=== PATIENT | female | born 1960 | race Caucasian/White ===

== ENCOUNTER 2017-06-28 14:13 | Emergency (ER) | payer BC ==
[2017-06-28 14:32] LABS: #Basophils 0.1 thou/uL (0.0-0.2); #Eosinphils 0.1 thou/uL (0.0-0.7); #Lymphocytes 2.9 thou/uL (1.20-3.40); #Monocytes 0.6 thou/uL (0.11-0.59); #Neutrophils 3.4 thou/uL (1.40-6.50); %Basophils 1.4 % (0.0-1.0); %Eosinophils 0.9 % (0.0-10.0); %Lymphocytes 41.2 % (21.0-51.0); %Monocytes 8.5 % (0.0-10.0); Hemoglobin 15.3 g/dL (12.0-16.0); Mean Corpuscular HGB CONC 34.1 g/dL (32.0-36.0); Mean Platelet Volume 6.8 fL (7.4-10.4); Platelet Count 315 thou/uL (130-400); RBC Distribution Width 10.9 % (11.5-14.5)
[2017-06-28] MEDS ORDERED: Ondansetron HCl/PF 4 MG/2 ML Vial ONE (14:34)
[2017-06-28 14:48] LABS: ALT (SGPT) 14 U/L (8-55); AST (SGOT) 17 U/L (5-34); Albumin 4.6 g/dL (3.5-5.0); Alkaline Phosphatase 115 U/L (40-150); Anion Gap 16 mmol/L (10-20); BUN (Urea Nitrogen) 14 mg/dL (9.8-20.1); Bilirubin, Total 0.5 mg/dL (0.2-1.2); CK (CPK) 21 U/L (29-168); CKMB 0.7 ng/mL (0-6.6); Calc. Creatinine Clearance 0 mL/min (70-130); Calcium 9.6 mg/dL (7.8-10.44); Carbon Dioxide 26 mmol/L (22-29); Chloride 100 mmol/L (98-107); Estimated GFR-MDRD 72; Globulin 2.8 g/dL (2.4-3.5); Glucose 121 mg/dL (70-105); Lipase 26 U/L (8-78); Potassium 3.5 mmol/L (3.5-5.1); Protein, Total 7.4 g/dL (6.0-8.3); Sodium 138 mmol/L (136-145); Troponin I 0.018 ng/mL (< 0.028)
--- NOTE | 2017-06-28 15:15 | RAD ---
PORTABLE CHEST: Date: 06/28/17 PROVIDED CLINICAL HISTORY: Nausea and vomiting. FINDINGS: Cardiac and mediastinal silhouette within normal limits. Lungs appear clear. No pleural fluid or pneu mothorax apparent. No evidence for pneumoperitoneum. IMPRESSION: No evidence for an acute cardiopulmonary process. POS: [facility]
[2017-06-28 17:16] LABS: Bilirubin Negative (Negative); Blood, Urine Trace (Negative); Clarity Clear (Clear); Glucose, Urine (Dipstick) Negative (Negative); Leukocyte Negative (Negative); Nitrite Negative (Negative); Protein, Urine (Dipstick) Negative (Neg-Trace); Specific Gravity, Urine 1.015 (1.005-1.030)
[2017-06-28 17:18] LABS: Bacteria/HPF 1+ HPF (None Seen); RBC/HPF 0-3 HPF (0-3); WBC/HPF None Seen HPF (0-3)
[2017-06-28 17:36] LABS: Troponin I 0.021 ng/mL (< 0.028)
== END 2017-06-28 17:51 | disposition home or self-care (01) ==
LOC: SCSER 14:13
DX: M79.602 Pain in left arm (principal); R11.2 Nausea with vomiting, unspecified; E03.9 Hypothyroidism, unspecified; I10 Essential (primary) hypertension; Z79.899 Other long term (current) drug therapy
CPT/HCPCS: 71045; 80053; 81003; 81015; 82550; 82553; 83690; 84484; 85025; 93005; 96361; 96374; J2405

== ENCOUNTER 2017-09-07 13:01 | Outpatient (CLI) | payer BC | END 2017-09-07 13:02 | disposition home or self-care (01) | LOC: BICMAMMO 13:01 | PROVIDERS: ATTEND Obstetrics & Gynecology | DX: Z12.31 Encounter for screening mammogram for malignant neoplasm of breast (principal); R92.1 Mammographic calcification found on diagnostic imaging of breast; Z80.3 Family history of malignant neoplasm of breast | CPT/HCPCS: 77063; 77067 ==

== ENCOUNTER 2017-09-30 13:39 | Emergency (ER) | payer BC ==
[2017-09-30 16:29] LABS: #Eosinphils 0.1 thou/uL (0.0-0.7); #Lymphocytes 1.6 thou/uL (1.20-3.40); #Monocytes 0.5 thou/uL (0.11-0.59); #Neutrophils 2.1 thou/uL (1.40-6.50); %Basophils 0.3 % (0.0-1.0); %Eosinophils 1.2 % (0.0-10.0); %Lymphocytes 37.1 % (21.0-51.0); %Monocytes 11.7 % (0.0-10.0); %Neutrophils 49.7 % (42.0-75.0); Hemoglobin 12.8 g/dL (12.0-16.0); Mean Corpuscular HGB CONC 34.4 g/dL (32.0-36.0); Mean Corpuscular Hemoglobin 30.9 pg (27.0-31.0); Mean Corpuscular Volume 89.7 fl (81.0-99.0); Mean Platelet Volume 6.4 fL (7.4-10.4); Platelet Count 223 thou/uL (130-400); RBC Distribution Width 11.9 % (11.5-14.5); Red Blood Cell (RBC) Count 4.16 mill/uL (4.20-5.40); White Blood Cell (WBC) Count 4.3 thou/uL (4.8-10.8)
[2017-09-30 16:54] LABS: CKMB 1.5 ng/mL (0-6.6); Troponin I Less than 0.010 ng/mL (< 0.028)
[2017-09-30 16:55] LABS: ALT (SGPT) 12 U/L (8-55); AST (SGOT) 20 U/L (5-34); Albumin 4.3 g/dL (3.5-5.0); Alkaline Phosphatase 112 U/L (40-150); Anion Gap 12 mmol/L (10-20); BUN (Urea Nitrogen) 15 mg/dL (9.8-20.1); Bilirubin, Total 0.3 mg/dL (0.2-1.2); Calc. Creatinine Clearance 0 mL/min (70-130); Carbon Dioxide 25 mmol/L (22-29); Chloride 107 mmol/L (98-107); Estimated GFR-MDRD 54; Globulin 2.7 g/dL (2.4-3.5); Glucose 76 mg/dL (70-105); Potassium 4.2 mmol/L (3.5-5.1); Sodium 140 mmol/L (136-145)
== END 2017-09-30 17:22 | disposition home or self-care (01) ==
LOC: ERS 13:39
DX: I10 Essential (primary) hypertension (principal); E03.9 Hypothyroidism, unspecified; K21.9 Gastro-esophageal reflux disease without esophagitis; Z79.899 Other long term (current) drug therapy; Z79.891 Long term (current) use of opiate analgesic
CPT/HCPCS: 36415; 80053; 82553; 84484; 85025; 93005

== ENCOUNTER 2018-01-02 11:33 | Inpatient (IN) | payer BC ==
[2018-01-02] MEDS ORDERED: Ketorolac Tromethamine 30 MG/ML VIAL ONE ×2 (12:17→15:24)
[2018-01-02 12:21] LABS: Bilirubin Negative (Negative); Blood, Urine Negative (Negative); Clarity Clear (Clear); Glucose, Urine (Dipstick) Negative (Negative); Leukocyte Trace (Negative); Nitrite Negative (Negative); Protein, Urine (Dipstick) Negative (Neg-Trace); Specific Gravity, Urine 1.015 (1.005-1.030); pH, Urine 7.5 (5.0-9.0)
[2018-01-02 12:23] LABS: #Basophils 0.1 thou/uL (0.0-0.2); #Eosinphils 0.1 thou/uL (0.0-0.7); #Lymphocytes 1.8 thou/uL (1.20-3.40); #Monocytes 0.6 thou/uL (0.11-0.59); #Neutrophils 4.8 thou/uL (1.40-6.50); %Basophils 1.3 % (0.0-1.0); %Lymphocytes 24.6 % (21.0-51.0); %Neutrophils 65.1 % (42.0-75.0); Hemoglobin 14.1 g/dL (12.0-16.0); Mean Corpuscular HGB CONC 34.5 g/dL (32.0-36.0); Mean Corpuscular Hemoglobin 30.2 pg (27.0-31.0); Mean Corpuscular Volume 87.4 fL (78.0-98.0); Mean Platelet Volume 6.7 fL (7.4-10.4); Platelet Count 306 thou/uL (130-400); RBC Distribution Width 11.7 % (11.5-14.5); Red Blood Cell (RBC) Count 4.68 mill/uL (4.20-5.40); White Blood Cell (WBC) Count 7.4 thou/uL (4.8-10.8)
[2018-01-02 12:25] LABS: Bacteria/HPF Rare-Few HPF (None Seen); RBC/HPF 0-3 HPF (0-3); Squamous Epithelial 0-3 HPF (0-3); WBC/HPF 0-3 HPF (0-3)
[2018-01-02 12:38] LABS: ALT (SGPT) 12 U/L (8-55); AST (SGOT) 17 U/L (5-34); Albumin 4.4 g/dL (3.5-5.0); Alkaline Phosphatase 120 U/L (40-150); Anion Gap 14 mmol/L (10-20); BUN (Urea Nitrogen) 15 mg/dL (9.8-20.1); Bilirubin, Total 0.7 mg/dL (0.2-1.2); Calc. Creatinine Clearance 0 mL/min (70-130); Calcium 9.7 mg/dL (7.8-10.44); Carbon Dioxide 29 mmol/L (22-29); Chloride 103 mmol/L (98-107); Estimated GFR-MDRD 69; Globulin 2.7 g/dL (2.4-3.5); Glucose 90 mg/dL (70-105); Lipase 22 U/L (8-78); Potassium 3.7 mmol/L (3.5-5.1); Protein, Total 7.1 g/dL (6.0-8.3); Sodium 142 mmol/L (136-145)
[2018-01-02] MEDS ORDERED: metroNIDAZOLE 500 MG/100 ML BAG ONE (12:54)
--- NOTE | 2018-01-02 13:24 | CT ---
CT ABDOMEN AND PELVIS: Date: 01/02/18 PROVIDED CLINICAL HISTORY: Abdominal pain. FINDINGS: The visualized lung bases are free of significant opacity. The solid abdominal organs are suboptimally evaluated in the absence of IV contrast material, but dem onstrate an unremarkable unenhanced CT appearance. Changes of prior cholecystectomy are seen. Lower lumbar spine postoperative changes are noted. There is no bowel dilatation, inflammatory fat stranding, free fluid, or lymph node enlargement apparent. A pparent mural thickening involving the sigmoid colon and distal descending colon could reflect coliti s versus nondistention. The osseous structures demonstrate no concerning lytic or blastic lesions. Occasional vascular calcif ications are seen. IMPRESSION: 1. Apparent mural thickening involving sigmoid and distal descending colon may reflect nondistention versus colitis. 2. Chronic findings as above. POS: [facility]
[2018-01-02] MEDS ORDERED: Ondansetron HCl/PF 4 MG/2 ML Vial IVP PRN (16:14)
[2018-01-02] MEDS ORDERED: Ondansetron ODT 4 MG TAB SL PRN (16:14)
[2018-01-02] MEDS ORDERED: Dextrose 5 %-0.45 % NaCl 1,000 ML IV SCH (16:15)
[2018-01-02 16:17] VITALS: BMI 23.5
[2018-01-02] MEDS ORDERED: Acetaminophen 325 MG TAB PO PRN (16:18)
[2018-01-02] MEDS ORDERED: cloNIDine 0.1 MG TAB PO PRN (16:18)
[2018-01-02] MEDS ORDERED: Bisacodyl 5 MG TAB PO PRN ×2 (16:18)
[2018-01-02] MEDS ORDERED: Diabetic Tussin 200 MG/10 ML UDCUP PO PRN (16:18)
[2018-01-02] MEDS ORDERED: Lorazepam 1 MG TAB PO PRN (16:18)
[2018-01-02] MEDS ORDERED: Mag-Al 1200 mg/1200 mg/30 ML UDCUP PO PRN (16:18)
[2018-01-02] MEDS ORDERED: Benzonatate 100 MG CAP PO PRN (16:18)
[2018-01-02] MEDS ORDERED: Nitroglycerin 0.4 MG TAB (25 Tab Bottle) SL PRN (16:18)
[2018-01-02] MEDS ORDERED: Calcium Carbonate 500 MG ChewTAB PO PRN (16:18)
[2018-01-02] MEDS ORDERED: Senokot 8.6 MG TAB PO PRN ×2 (16:18)
[2018-01-02] MEDS ORDERED: traMADol HCl 50 MG TAB PO PRN (16:18)
[2018-01-02] MEDS ORDERED: Loratadine 10 MG TAB PO PRN (16:18)
[2018-01-02] MEDS ORDERED: hydrALAZINE 20 MG/ML VIAL SLOW IVP PRN (16:18)
[2018-01-02] MEDS ORDERED: HYDROcodone/Acetaminophen 5/325 mg Tablet PO PRN (16:18)
[2018-01-02 17:03] LABS: Anion Gap 12 mmol/L (10-20); BUN (Urea Nitrogen) 13 mg/dL (9.8-20.1); Calc. Creatinine Clearance 91 mL/min (70-130); Calcium 8.8 mg/dL (7.8-10.44); Carbon Dioxide 25 mmol/L (22-29); Chloride 107 mmol/L (98-107); Estimated GFR-MDRD 78; Glucose 82 mg/dL (70-105); Potassium 3.7 mmol/L (3.5-5.1); Sodium 140 mmol/L (136-145)
[2018-01-02] MEDS: Sodium Chloride 0.9% 1,000 ML IV SCH (17:53)
[2018-01-02] MEDS ORDERED: Ketorolac Tromethamine 30 MG/ML VIAL IVP PRN (17:54)
--- NOTE | 2018-01-02 18:23 | HP ---
DATE OF ADMISSION: 01/02/2018 PRIMARY CARE PHYSICIAN: Dr. Gregorio Leong. PRIMARY SERVICE WRITER: Dr. Rina Marshall. CHIEF COMPLAINT: Abdominal pain, vomiting. HISTORY OF PRESENT ILLNESS: Ms. Callaway is a very pleasant 57-year-old female with extensive history of gastrointestinal issues who is under the care of Dr. Rina Granda, presented to the emergency room in [place] with the above-mentioned complaints. History is mainly obtained by the patient he rself and electronic medical records have been reviewed. Ms. Callaway reports that she has had 7 attacks of diverticulitis in the last 3 years which consist abdom inal pain, nausea, and vomiting. She has had three colonoscopies so far with regards to this. She a lso follows up with a colorectal specialist for history of some rectal fistula that was repaired in [facility]. Her last episode was in June of this year. She reports that she started to have abdominal pain 2 days ago which progressively got worse. It was associated with nausea and eventually she started to have significant vomiting. She called her GI d octor yesterday and was started on ciprofloxacin and metronidazole, but was unable to take any doses because of vomiting. She presented to the ER with these symptoms and underwent a CT scan of the abdo men and pelvis without contrast. It did show possibility of mild colitis in the sigmoid and distal d escending colon. This was done without contrast. She was given IV ciprofloxacin and metronidazole a nd is now being transferred to our facility for admission for further care. The patient that she has a history of significant gynecological issues in the past and had a hysterec aldair at the age of 28 for possible endometriosis. PAST MEDICAL HISTORY: 1. Hypothyroidism. 2. Lupus. The patient currently is on immunosuppressive medications and follows up with lupus roman king in [place] and reports that it is rather controlled. 3. History of recurrent diverticulitis. 4. Gastroesophageal reflux disease. 5. Chronic back pain under the care of Dr. Decker. 6. Hypertension. PAST SURGICAL HISTORY: 1. Cholecystectomy. 2. Back surgery x2. 3. Hemorrhoidectomy. 4. Hysterectomy at the age of 28 and oophorectomy later. PSYCHIATRIC HISTORY: No anxiety, no depression reviewed with the patient. SOCIAL HISTORY: She is and lives with her . She quit smoking about 20 years ago. Jimenez s no history of alcohol or drug use. FAMILY HISTORY: Significant for diabetes in her father as well as hypertension in multiple other [facility] members. No history of premature coronary artery disease, stroke or cancer. Her sister has also been diagnosed with lupus. ALLERGIES: LATEX, SULFONAMIDE, and BACTRIM. CURRENT MEDICATIONS: Lansoprazole 30 mg daily, tizanidine 4 mg every 8 hours p.r.n., amlodipine 5 mg daily, clonidine 0.1 mg as needed for high blood pressure, hydroxychloroquine 200 mg b.i.d., folic a sherita 1 mg daily, Medrol Dosepak as needed, methotrexate 6 tablets once a week of 2.5 mg, Nucynta 50 mg every 6 hours. REVIEW OF SYSTEMS: A 12-point review of systems is done. It is negative except for those mentioned in the history and physical. LABORATORY DATA: CBC is unremarkable. Serum chemistries unremarkable. Lipase normal at 22. Liver enzymes within normal limit. Urinalysis shows trace leukocyte esterase without WBCs or bacteria. CT scan of the abdomen and pelvis shows some mural thickening involving the sigmoid and distal descendi ng colon reflecting nondistention versus colitis. PHYSICAL EXAMINATION: VITAL SIGNS: Upon presentation to the emergency room, blood pressure 158/82, pulse of 87, respiratio ns 20, saturating 99% on room air, temperature 98.6. GENERAL: No acute distress, awake, alert, oriented x3. She does appear somewhat uncomfortable. HEENT: Mucous membrane is moist and pink. No oropharyngeal exudate or erythema. Head is normocepha lic, atraumatic. Pupils equal, reactive to light and accommodation. Extraocular movement intact. NECK: Supple without any lymphadenopathy, JVD or bruit. CHEST: Clear to auscultation without any wheezing, rales or rhonchi. Rate and rhythm is regular wit hout any murmur, rubs or gallops. ABDOMEN: Soft, somewhat distended. No rebound, guarding or rigidity. Mild tender to palpation diff usely, mostly in the subumbilical region. EXTREMITIES: No cyanosis, clubbing, or edema. NEUROLOGIC: Nonfocal. SKIN: Free of any rashes or bruises. PSYCHIATRIC: Normal affect. IMPRESSION AND PLAN: 1. Abdominal pain. There is a question of colitis versus recurrent diverticulitis. At this time, s he will be treated with empiric IV antibiotic directed towards gastrointestinal issues. She has sign ificant history of gastrointestinal episodes of similar symptoms. We will request consultation with GI during this hospitalization as this episode seems to be more severe than previous. She has been t old in the past that she might need resection of the colon if she continues to have recurrent episode s of diverticulitis. At this time, we will keep her n.p.o. and start her on IV fluids for hydration and use IV pain medications for relief. Hold oral medications and use instead. 2. History of lupus. We will restart her home medications in the morning when she is able to take o ral medications. 3. Hypertension. Add p.r.n. antihypertensives by IV route and restart home medications in the morni ng if she is able to take oral. 4. Hypothyroidism. We will restart her levothyroxine tomorrow morning once she is able to take oral medications. 5. Deep venous thrombosis and gastrointestinal prophylaxis. 6. Code status: FULL CODE. Discussed with the patient. 7. Add p.r.n. medication order. DISPOSITION: Ms. Callaway is currently being admitted to the hospital with recurrent diverticulitis vers us colitis causing abdominal pain and inability to take oral antibiotic in the outpatient setting. E stimated length of stay at this time is at least 2-3 midnights. Further management will depend upon her clinical course.
[2018-01-02] MEDS: Hydroxychloroquine Sulfate 200 MG TAB PO SCH (21:00)
[2018-01-02] MEDS: Famotidine/PF 20 mg/2ml Vial SLOW IVP SCH (21:01)
[2018-01-02] MEDS: metroNIDAZOLE 500 MG in Premix Bag 1 BAG IVPB SCH (21:10)
[2018-01-02] MEDS ORDERED: metroNIDAZOLE 500 MG in Premix Bag 1 BAG IVPB SCH (22:00)
[2018-01-03] MEDS: Sodium Chloride 0.9% 1,000 ML IV SCH ×2 (04:16→17:34)
[2018-01-03 04:17] LABS: #Basophils 0.1 thou/uL (0.0-0.2); #Eosinphils 0.1 thou/uL (0.0-0.7); #Lymphocytes 2.1 thou/uL (1.20-3.40); #Monocytes 0.5 thou/uL (0.11-0.59); #Neutrophils 1.9 thou/uL (1.40-6.50); %Basophils 1.1 % (0.0-1.0); %Eosinophils 2.2 % (0.0-10.0); %Lymphocytes 44.6 % (21.0-51.0); %Monocytes 11.1 % (0.0-10.0); %Neutrophils 40.9 % (42.0-75.0); Hemoglobin 12.7 g/dL (12.0-16.0); Mean Corpuscular Hemoglobin 31.3 pg (27.0-31.0); Mean Corpuscular Volume 92.1 fL (78.0-98.0); Mean Platelet Volume 6.7 fL (7.4-10.4); Platelet Count 252 thou/uL (130-400); RBC Distribution Width 12.6 % (11.5-14.5); Red Blood Cell (RBC) Count 4.05 mill/uL (4.20-5.40); White Blood Cell (WBC) Count 4.7 thou/uL (4.8-10.8)
[2018-01-03] MEDS: Levothyroxine 150 MCG TAB PO SCH (05:47)
[2018-01-03] MEDS: metroNIDAZOLE 500 MG in Premix Bag 1 BAG IVPB SCH ×3 (05:47→21:09)
[2018-01-03] MEDS ORDERED: Methotrexate Sodium 2.5 MG TAB PO SCH (09:00)
[2018-01-03] MEDS: Ondansetron HCl/PF 4 MG/2 ML Vial IVP PRN ×2 (09:35→17:30)
[2018-01-03] MEDS: Amlodipine 5 MG TAB PO SCH (09:36)
[2018-01-03] MEDS: Famotidine/PF 20 mg/2ml Vial SLOW IVP SCH ×2 (09:36→21:08)
[2018-01-03] MEDS: Folic Acid 1 MG TAB PO SCH (09:36)
[2018-01-03] MEDS: Hydroxychloroquine Sulfate 200 MG TAB PO SCH ×2 (09:36→21:08)
[2018-01-03] MEDS: Enoxaparin Sodium 40 MG/0.4 ML SYRINGE SC SCH (09:37)
--- NOTE | 2018-01-03 12:29 | PDOC.PN ---
- Subjective Encounter Start Date: 01/03/18 Encounter Start Time: 12:27 Subjective: feels nauseated w on and off Abd pain , -: no stools since admission as has not eaten -: no fever - Objective MAR Reviewed: Yes Vital Signs & Weight: Vital Signs (12 hours) Temp Pulse Resp BP BP Pulse Ox 01/03/18 11:43 97.8 F 76 16 124/77 97 01/03/18 09:36 73 122/60 01/03/18 08:00 97.9 F 73 16 122/60 98 01/03/18 04:43 97.7 F 76 16 122/73 99 01/03/18 00:37 97.8 F 76 16 127/65 99 Weight Weight 154 lb 9 oz I&O: 01/02/18 01/03/18 01/04/18 06:59 06:59 06:59 Intake Total 1440 Balance 1440 Result Diagrams: 01/03/18 03:38 01/02/18 16:30 Phys Exam - Physical Examination Constitutional: NAD HEENT: PERRLA, moist MMs, sclera anicteric, oral pharynx no lesions Neck: no nodes, no JVD, supple, full ROM Respiratory: no wheezing, no rales, no rhonchi, clear to auscultation bilateral Cardiovascular: RRR, no significant murmur, no rub Gastrointestinal: soft, no distention, positive bowel sounds mild TTP lower abdomen Musculoskeletal: no edema, pulses present Neurological: non-focal, normal sensation, moves all 4 limbs Psychiatric: normal affect, A&O x 3 Skin: no rash Dx/Plan (1) Colitis Code(s): K52.9 - NONINFECTIVE GASTROENTERITIS AND COLITIS, UNSPECIFIED Status : Acute Comment: on Empiric Antibiotics (2) Abdominal pain Code(s): R10.9 - UNSPECIFIED ABDOMINAL PAIN Status: Acute Qualifiers: Abdominal location: lower abdomen, unspecified Qualified Code(s): R10.30 - Lower abdominal pain, unspecified (3) Lupus Code(s): L93.0 - DISCOID LUPUS ERYTHEMATOSUS Status: Chronic Qualifiers: Lupus erythematosus form: unspecified Qualified Code(s): L93.0 - Discoid lupus erythematosus (4) H/O diverticulitis of colon Code(s): Z87.19 - PERSONAL HISTORY OF OTHER DISEASES OF THE DIGESTIVE SYSTEM Status: Chronic (5) H/O endometritis Code(s): Z87.42 - PERSONAL HISTORY OF OTH DISEASES OF THE FEMALE GENITAL TRACT Status: Chronic - Plan plan discussed w/ family, continue antibiotics, out of bed/ambulate, DVT proph w /SCDs Will give trial of CLD after being discussed w Pt. -: cont empiric ABx. expect clinical improvement in next 24 hours -: cont IVF for now.HD stable -: GI recs requested -: home meds as below if able to take w/o vomiting * . Review of Systems - Review of Systems Constitutional: weakness, malaise. negative: fever, chills, sweats, other ENT: negative: Ear Pain, Ear Discharge, Nose Pain, Nose Discharge, Nose Congestion, Mouth Pain, Mouth Swelling, Throat Pain, Throat Swelling, Other Respiratory: negative: Cough, Dry, Shortness of Breath, Hemoptysis, SOB with Excertion, Pleuritic Pain, Sputum, Wheezing Cardiovascular: negative: chest pain, palpitations, orthopnea, paroxysmal nocturnal dyspnea, edema, light headedness, other Gastrointestinal: Nausea, Abdominal Pain. negative: Vomiting, Diarrhea, Constipation, Melena, Hematochezia, Other Genitourinary: negative: Dysuria, Frequency, Incontinence, Hematuria, Retention , Other Musculoskeletal: negative: Neck Pain, Shoulder Pain, Arm Pain, Back Pain, Hand Pain, Leg Pain, Foot Pain, Other Skin: negative: Rash, Lesions, Demian, Bruising, Other Neurological: negative: Weakness, Numbness, Incoordination, Change in Speech, Confusion, Seizures, Other - Medications/Allergies Allergies/Adverse Reactions: Allergies Allergy/AdvReac Type Severity Reaction Status Date / Time Sulfa (Sulfonamide Allergy Verified 01/02/18 16:20 Antibiotics) sulfamethoxazole Allergy Verified 04/16/13 12:32 [From Bactrim] trimethoprim [From Bactrim] Allergy Verified 04/16/13 12:32 Medications: Current Medications Acetaminophen (Tylenol) 650 mg PO Q4H PRN PRN Reason: Headache/Fever or Pain Hydrocodone Bitart/Acetaminophen (Steedman 5/325) 1 tab PO Q4H PRN PRN Reason: Moderate Pain (4-6) Al Hydroxide/Mg Hydroxide (Maalox) 30 ml PO Q6H PRN PRN Reason: Heartburn or Indigestion Amlodipine Besylate (Norvasc) 5 mg PO DAILY [facility] Last Admin: 01/03/18 09:36 Dose: 5 mg Benzonatate (Tessalon) 100 mg PO Q4H PRN PRN Reason: Cough Bisacodyl (Dulcolax) 10 mg PO DAILYPRN PRN PRN Reason: Constipation Bisacodyl (Dulcolax) 10 mg PO DAILYPRN PRN PRN Reason: Constipation Calcium Carbonate (Tums) 1,000 mg PO Q4H PRN PRN Reason: Heartburn or Indigestion Clonidine (Catapres) 0.1 mg PO Q4H PRN PRN Reason: Systolic BP > 160 Enoxaparin Sodium (Lovenox) 40 mg SC 09 [facility] Last Admin: 01/03/18 09:37 Dose: 40 mg Famotidine (Pepcid) 20 mg SLOW IVP Q12HR [facility] Last Admin: 01/03/18 09:36 Dose: 20 mg Folic Acid (Folvite) 1 mg PO DAILY [facility] Last Admin: 01/03/18 09:36 Dose: Not Given Guaifenesin (Robitussin Sf) 200 mg PO Q4H PRN PRN Reason: Cough Hydralazine HCl (Apresoline) 10 mg SLOW IVP Q4H PRN PRN Reason: Systolic BP > 170 Hydroxychloroquine Sulfate (Plaquenil) 400 mg PO BID [facility] Last Admin: 01/03/18 09:36 Dose: 400 mg Sodium Chloride (Normal Saline 0.9%) 1,000 mls @ 100 mls/hr IV .Q10H [facility] Last Admin: 01/03/18 04:16 Dose: 1,000 mls Levofloxacin 500 mg/ Device 100 mls @ 100 mls/hr IVPB Q24HR [facility] Last Admin: 01/03/18 09:35 Dose: 100 mls Metronidazole 500 mg/ Device 100 mls @ 100 mls/hr IVPB Q8HR [facility] Last Admin: 01/03/18 05:47 Dose: 100 mls Ketorolac Tromethamine (Toradol) 15 mg IVP Q12H PRN PRN Reason: Severe Pain (7-10) Stop: 01/07/18 17:55 Levothyroxine Sodium (Synthroid) 150 mcg PO 0600 [facility] Last Admin: 01/03/18 05:47 Dose: 150 mcg Loratadine (Claritin) 10 mg PO DAILYPRN PRN PRN Reason: Sinus Symptoms Lorazepam (Ativan) 1 mg PO Q4H PRN PRN Reason: Anxiety/Agitation Methotrexate Sodium (Methotrexate Sodium) 15 mg PO Garner@0900 JUAN Morphine Sulfate (Morphine) 2 mg SLOW IVP Q4H PRN PRN Reason: Moderate Pain (4-6) Last Admin: 01/03/18 09:35 Dose: 2 mg Nitroglycerin (Nitrostat) 0.4 mg SL Q5MIN PRN PRN Reason: Chest Pain Ondansetron HCl (Zofran) 4 mg IVP Q6H PRN PRN Reason: Nausea/Vomiting Last Admin: 01/03/18 09:35 Dose: 4 mg Senna (Senokot) 2 tab PO HSPRN PRN PRN Reason: Constipation Tramadol HCl (Ultram) 50 mg PO Q4H PRN PRN Reason: Moderate Pain (4-6)
--- NOTE | 2018-01-03 16:19 | CON ---
DATE OF CONSULTATION: 01/03/2018 GI INPATIENT CONSULTATION NOTE REASON FOR CONSULTATION: Abdominal pain and abnormal CT. HISTORY OF PRESENT ILLNESS: Cee Callaway is a 57-year-old woman, a patient of my GI colleague, Dr. Melina Granda. She was admitted to the hospital yesterday with recurrent abdominal pain. She has a hist ory of recurrent diverticulitis. She reports she has had 7 attacks of diverticulitis in the past 3 y ears. Her last attack was in April of this year and she was actually hospitalized in [place] for 5 days. She says each episode is basically exactly the same. She will have generalized abdominal krista n which will start to localize to the left lower quadrant and become severe over the course of 1-2 da ys. There will be some associated nausea and sometimes nonbloody emesis. Bowel habits will change a nd she will get relatively obstipated though usually continue to pass gas. There is no rectal bleedi ng with these episodes. She has not had any fever at least on this episode. It looks like her last colonoscopy was in 03/2015. Dr. Granda actually performed EGD and colonoscopy at that time. She was found to have mild gastric erythema and internal and external hemorrhoids and sigmoid diverticulosis, but notably there was no evidence of any chronic colitis. In fact, she had biopsies taken from the stomach, duodenum, right and left colon and all those biopsies were normal at that time. The patient does not think she has had any colonoscopy since then, though she may have had one in [place] with a colorectal surgeon, she is not sure. 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 Upo n admission, Ms. Callaway had another CT of the abdomen and pelvis yesterday and this did show mural thic kening in the sigmoid colon and distal descending colon, though really not a lot of inflammatory stra nding and this was read as nondistention versus colitis. Prior CT scans on different presentations i n the past few years have demonstrated more obvious features of a classic sigmoid diverticulitis. Th e patient is currently getting IV Levaquin and Flagyl as well as morphine for pain control. The morp gaby is helping. She advanced to clear liquid diet just earlier today, but is not really feeling janette y hungry yet. She is passing gas, but has not had a bowel movement for the past couple of days. She is afebrile. REVIEW OF SYSTEMS: Full review of systems including constitutional, head, eyes, ears, nose, throat, GI, , cardiovascular, respiratory, musculoskeletal, and neurologic systems is negative except as no [place] in the HPI. PAST MEDICAL HISTORY: Lupus, hypothyroidism, history of recurrent sigmoid diverticulitis, gastroesop hageal reflux disease, chronic back pain, hypertension. PAST SURGICAL HISTORY: Cholecystectomy, back surgery x2, hemorrhoidectomy, hysterectomy age 28 and o ophorectomy later. SOCIAL HISTORY: She is and lives with her . She quit smoking about 20 years ago. No alcohol or drug use. FAMILY HISTORY: Her sister also has lupus, diabetes, and hypertension in multiple family members. ALLERGIES: LATEX, SULFONAMIDE, BACTRIM. OUTPATIENT MEDICATIONS: Lansoprazole 30 mg daily, tizanidine p.r.n., amlodipine, clonidine p.r.n., h ydroxychloroquine, folic acid, Medrol Dosepak as needed, methotrexate 6 tablets once a week of 2.5 mg , Nucynta 50 mg every 6 hours. The patient had also been started on oral ciprofloxacin and Flagyl within the past couple days prior to admission, but was unable to tolerate oral medications. PHYSICAL EXAMINATION: VITAL SIGNS: Temperature 97.8, pulse 76, blood pressure 124/77, 97% oxygen saturation on room air. GENERAL: A 57-year-old woman lying in bed comfortably, in no distress. SKIN: No jaundice, no rash visible or palpable. EYES: No scleral icterus. Extraocular movements intact. ENT: Mucous membranes moist, no oral lesions. LYMPH: No submandibular or supraclavicular lymphadenopathy. THYROID: Nontender to palpation. MENTAL: She is alert and fully oriented. She is pleasant and conversational. She can give a detail ed coherent history. HEART: Regular rate and rhythm. LUNGS: Clear to auscultation bilaterally. ABDOMEN: Bowel sounds are present. The abdomen is soft, but tender to palpation diffusely, particul agapito in the lower abdomen and left lower quadrant. No guarding or rebound tenderness. EXTREMITIES: No peripheral edema. VESSELS: Radial pulses 2+ bilaterally. NEUROLOGICAL: Cranial nerves II-XII intact bilaterally. No focal deficits. LABORATORY STUDIES: WBC 4.7, hemoglobin 12.7, platelets 252. Sodium 140, potassium 3.7, BUN 13, cre atinine 0.77. LFTs all normal. Lipase normal at 22. Urinalysis negative. IMAGING STUDIES: CT of the abdomen and pelvis from yesterday demonstrated some mural thickening of t he sigmoid and distal descending colon representing nondistention versus colitis. Note that this was a noncontrast scan. ASSESSMENT AND PLAN: 1. Sigmoid diverticulitis, recurrent. 2. Left lower quadrant abdominal pain, secondary to recurrent sigmoid diverticulitis. The patient's presentation is consistent with recurrent sigmoid diverticulitis. Findings have been m ore clear on prior CT scans, but symptoms and presentation are all the same. I doubt the onset of an y chronic inflammatory bowel disease, particularly with last colonoscopy in 03/2015 showing normal co lonic mucosa. Normal colon biopsies at that time. In the short term, I would avoid any endoscopic e xamination due to the higher risk of complications. I would continue with supportive care and IV ant ibiotics as you are doing. Hopefully, she will be able to advance her diet and pain requirements sandra l decrease over the next couple of days, as before. She can follow up with Dr. Granda in the outpatie nt setting to discuss whether repeat colonoscopy would be advisable in the coming weeks after she has recovered from this acute episode. In the longer term, with a 7 attacks of diverticulitis in the past 3 years, at this point it would be reasonable to consider surgical consultation for consideration of sigmoid resection. I do not think this is necessarily have to be done on an inpatient basis here. In fact, she has a colorectal surge on in [place] whom she sees anyway, and could discuss this with her. Thank you for the consultation. Please call any time with questions or concerns.
[2018-01-04] MEDS: Ondansetron HCl/PF 4 MG/2 ML Vial IVP PRN ×2 (04:50→11:02)
[2018-01-04] MEDS: Levothyroxine 150 MCG TAB PO SCH (04:52)
[2018-01-04] MEDS: metroNIDAZOLE 500 MG in Premix Bag 1 BAG IVPB SCH ×3 (04:55→21:02)
[2018-01-04] MEDS: Sodium Chloride 0.9% 1,000 ML IV SCH (04:57)
[2018-01-04] MEDS: Hydroxychloroquine Sulfate 200 MG TAB PO SCH ×2 (08:50→21:03)
[2018-01-04] MEDS: Folic Acid 1 MG TAB PO SCH (08:51)
[2018-01-04] MEDS: Amlodipine 5 MG TAB PO SCH (08:51)
[2018-01-04] MEDS: Famotidine/PF 20 mg/2ml Vial SLOW IVP SCH ×2 (08:52→21:02)
[2018-01-04] MEDS: Enoxaparin Sodium 40 MG/0.4 ML SYRINGE SC SCH (08:52)
[2018-01-04] MEDS ORDERED: Meperidine HCl/PF 25 MG/ML VIAL SLOW IVP PRN (11:16)
[2018-01-04] MEDS ORDERED: Promethazine HCl 25 MG/ML VIAL IM/IV PRN (11:16)
--- NOTE | 2018-01-04 12:22 | PRG ---
DATE OF SERVICE: 01/04/2018 SUBJECTIVE: Mrs. Callaway feels like her pain has overall improved, it is more constant and dull, fairly generalized, but more localizing to the lower abdomen still. She has been afebrile and hemodynamica lly stable. Her primary complaint this morning is nausea. She has not had any vomiting. OBJECTIVE: VITAL SIGNS: Temperature 97.7, pulse 66, blood pressure 115/65, 99% oxygen saturation on room air. GENERAL: No acute distress. HEART: Regular rate and rhythm. LUNGS: Clear to auscultation bilaterally. ABDOMEN: Bowel sounds are hypoactive. The abdomen is soft. She is tender to palpation diffusely, m ore in the lower abdomen, but no guarding, rebound tenderness. EXTREMITIES: No peripheral edema. ASSESSMENT AND PLAN: 1. Sigmoid diverticulitis, recurrence. 2. Left lower quadrant abdominal pain. 3. Nausea, no evidence of complicated disease on admission CT scan. She has remained afebrile. We would continue supportive care with antiemetics and analgesics for now. We would just have her on a clear liquid diet as tolerated today, hopefully will be able to advance tomorrow.
--- NOTE | 2018-01-04 13:50 | PDOC.PN ---
- Subjective Encounter Start Date: 01/04/18 Encounter Start Time: 13:48 Subjective: c/o significant nause and abd pain after eating few bites - Objective MAR Reviewed: Yes Vital Signs & Weight: Vital Signs (12 hours) Temp Pulse Resp BP BP Pulse Ox 01/04/18 08:51 66 115/65 01/04/18 08:00 97.7 F 66 16 115/65 99 Weight Weight 154 lb 9 oz I&O: 01/03/18 01/04/18 01/05/18 06:59 06:59 06:59 Intake Total 1440 2039 180 Balance 1440 2039 180 Result Diagrams: 01/03/18 03:38 01/02/18 16:30 Phys Exam - Physical Examination Constitutional: NAD uncomfortable HEENT: PERRLA, moist MMs, sclera anicteric, oral pharynx no lesions Neck: no nodes, no JVD, supple, full ROM Respiratory: no wheezing, no rales, no rhonchi, clear to auscultation bilateral Cardiovascular: RRR, no significant murmur, no rub Gastrointestinal: soft, non-tender, no distention, positive bowel sounds Musculoskeletal: no edema, pulses present Neurological: non-focal, normal sensation, moves all 4 limbs Psychiatric: normal affect, A&O x 3 Skin: no rash Dx/Plan (1) Sigmoid diverticulitis Code(s): K57.32 - DVTRCLI OF LG INT W/O PERFORATION OR ABSCESS W/O BLEEDING Status: Acute (2) Colitis Code(s): K52.9 - NONINFECTIVE GASTROENTERITIS AND COLITIS, UNSPECIFIED Status : Acute Comment: on Empiric Antibiotics (3) Abdominal pain Code(s): R10.9 - UNSPECIFIED ABDOMINAL PAIN Status: Acute Qualifiers: Abdominal location: lower abdomen, unspecified Qualified Code(s): R10.30 - Lower abdominal pain, unspecified (4) Lupus Code(s): L93.0 - DISCOID LUPUS ERYTHEMATOSUS Status: Chronic Qualifiers: Lupus erythematosus form: unspecified Qualified Code(s): L93.0 - Discoid lupus erythematosus (5) H/O diverticulitis of colon Code(s): Z87.19 - PERSONAL HISTORY OF OTHER DISEASES OF THE DIGESTIVE SYSTEM Status: Chronic (6) H/O endometritis Code(s): Z87.42 - PERSONAL HISTORY OF OTH DISEASES OF THE FEMALE GENITAL TRACT Status: Chronic - Plan plan discussed w/ family, continue antibiotics, out of bed/ambulate, DVT proph w /SCDs increase pain control and anti emetics -: CLD as tolerated -: GI recs appreciated. -: ABx .HD stable * . Review of Systems - Review of Systems Constitutional: weakness, malaise. negative: fever, chills, sweats, other Respiratory: negative: Cough, Dry, Shortness of Breath, Hemoptysis, SOB with Excertion, Pleuritic Pain, Sputum, Wheezing Cardiovascular: negative: chest pain, palpitations, orthopnea, paroxysmal nocturnal dyspnea, edema, light headedness, other Gastrointestinal: negative: Nausea, Vomiting, Abdominal Pain, Diarrhea, Constipation, Melena, Hematochezia, Other Genitourinary: negative: Dysuria, Frequency, Incontinence, Hematuria, Retention , Other Musculoskeletal: negative: Neck Pain, Shoulder Pain, Arm Pain, Back Pain, Hand Pain, Leg Pain, Foot Pain, Other Neurological: negative: Weakness, Numbness, Incoordination, Change in Speech, Confusion, Seizures, Other - Medications/Allergies Allergies/Adverse Reactions: Allergies Allergy/AdvReac Type Severity Reaction Status Date / Time Sulfa (Sulfonamide Allergy Verified 01/02/18 16:20 Antibiotics) sulfamethoxazole Allergy Verified 04/16/13 12:32 [From Bactrim] trimethoprim [From Bactrim] Allergy Verified 04/16/13 12:32 Medications: Current Medications Acetaminophen (Tylenol) 650 mg PO Q4H PRN PRN Reason: Headache/Fever or Pain Last Admin: 01/03/18 17:30 Dose: 650 mg Hydrocodone Bitart/Acetaminophen ([place] 5/325) 1 tab PO Q4H PRN PRN Reason: Moderate Pain (4-6) Al Hydroxide/Mg Hydroxide (Maalox) 30 ml PO Q6H PRN PRN Reason: Heartburn or Indigestion Amlodipine Besylate (Norvasc) 5 mg PO DAILY REPLACED BY [facility] Last Admin: 01/04/18 08:51 Dose: 5 mg Benzonatate (Tessalon) 100 mg PO Q4H PRN PRN Reason: Cough Bisacodyl (Dulcolax) 10 mg PO DAILYPRN PRN PRN Reason: Constipation Bisacodyl (Dulcolax) 10 mg PO DAILYPRN PRN PRN Reason: Constipation Calcium Carbonate (Tums) 1,000 mg PO Q4H PRN PRN Reason: Heartburn or Indigestion Clonidine (Catapres) 0.1 mg PO Q4H PRN PRN Reason: Systolic BP > 160 Enoxaparin Sodium (Lovenox) 40 mg SC 0900 REPLACED BY [facility] Last Admin: 01/04/18 08:52 Dose: 40 mg Famotidine (Pepcid) 20 mg SLOW IVP Q12HR REPLACED BY [facility] Last Admin: 01/04/18 08:52 Dose: 20 mg Folic Acid (Folvite) 1 mg PO DAILY REPLACED BY [facility] Last Admin: 01/04/18 08:51 Dose: 1 mg Guaifenesin (Robitussin Sf) 200 mg PO Q4H PRN PRN Reason: Cough Hydralazine HCl (Apresoline) 10 mg SLOW IVP Q4H PRN PRN Reason: Systolic BP > 170 Hydroxychloroquine Sulfate (Plaquenil) 400 mg PO BID REPLACED BY [facility] Last Admin: 01/04/18 08:50 Dose: 400 mg Sodium Chloride (Normal Saline 0.9%) 1,000 mls @ 100 mls/hr IV .Q10H REPLACED BY [facility] Last Admin: 01/04/18 04:57 Dose: 1,000 mls Levofloxacin 500 mg/ Device 100 mls @ 100 mls/hr IVPB Q24HR REPLACED BY [facility] Last Admin: 01/04/18 08:52 Dose: 100 mls Metronidazole 500 mg/ Device 100 mls @ 100 mls/hr IVPB Q8HR REPLACED BY [facility] Last Admin: 01/04/18 04:55 Dose: 100 mls Levothyroxine Sodium (Synthroid) 150 mcg PO 0600 REPLACED BY [facility] Last Admin: 01/04/18 04:52 Dose: 150 mcg Loratadine (Claritin) 10 mg PO DAILYPRN PRN PRN Reason: Sinus Symptoms Lorazepam (Ativan) 1 mg PO Q4H PRN PRN Reason: Anxiety/Agitation Meperidine HCl (Demerol) 25 mg SLOW IVP Q3H PRN PRN Reason: Pain Methotrexate Sodium (Methotrexate Sodium) 15 mg PO Garner@0900 REPLACED BY [facility] Last Admin: 01/03/18 12:44 Dose: 15 mg Morphine Sulfate (Morphine) 2 mg SLOW IVP Q4H PRN PRN Reason: Moderate Pain (4-6) Last Admin: 01/04/18 04:52 Dose: 2 mg Nitroglycerin (Nitrostat) 0.4 mg SL Q5MIN PRN PRN Reason: Chest Pain Ondansetron HCl (Zofran) 4 mg IVP Q6H PRN PRN Reason: Nausea/Vomiting Last Admin: 01/04/18 11:02 Dose: 4 mg Promethazine HCl (Phenergan) 25 mg IM/IV Q4H PRN PRN Reason: Nausea/Vomiting Senna (Senokot) 2 tab PO HSPRN PRN PRN Reason: Constipation Sodium Chloride (Flush - Normal Saline) 10 ml IVF Q12HR JUAN Sodium Chloride (Flush - Normal Saline) 10 ml IVF PRN PRN PRN Reason: Saline Flush Tramadol HCl (Ultram) 50 mg PO Q4H PRN PRN Reason: Moderate Pain (4-6)
[2018-01-05] MEDS: Sodium Chloride 0.9% 1,000 ML IV SCH ×3 (05:30→18:59)
[2018-01-05] MEDS: metroNIDAZOLE 500 MG in Premix Bag 1 BAG IVPB SCH ×3 (05:31→20:43)
[2018-01-05] MEDS: Levothyroxine 150 MCG TAB PO SCH (05:36)
[2018-01-05] MEDS: Enoxaparin Sodium 40 MG/0.4 ML SYRINGE SC SCH (09:38)
[2018-01-05] MEDS: Amlodipine 5 MG TAB PO SCH (09:39)
[2018-01-05] MEDS: Hydroxychloroquine Sulfate 200 MG TAB PO SCH ×2 (09:39→20:42)
[2018-01-05] MEDS: Folic Acid 1 MG TAB PO SCH (09:39)
[2018-01-05] MEDS: Famotidine/PF 20 mg/2ml Vial SLOW IVP SCH ×2 (09:40→20:42)
--- NOTE | 2018-01-05 14:50 | PDOC.PN ---
- Subjective Encounter Start Date: 01/05/18 Encounter Start Time: 14:49 Subjective: feels better again. able to eat some more solids -: nausea persists but not bad.loose stools -: has not used pain meds in last 24 hours - Objective MAR Reviewed: Yes Vital Signs & Weight: Vital Signs (12 hours) Pulse BP Pulse Ox 01/05/18 09:39 77 108/70 01/05/18 08:00 97 Weight Admit Weight 154 lb 9 oz Weight 154 lb 9 oz I&O: 01/04/18 01/05/18 01/06/18 06:59 06:59 06:59 Intake Total 2039 2580 540 Balance 2039 2580 540 Result Diagrams: 01/03/18 03:38 01/02/18 16:30 Phys Exam - Physical Examination Constitutional: NAD HEENT: PERRLA, moist MMs, sclera anicteric, oral pharynx no lesions Neck: no nodes, no JVD, supple, full ROM Respiratory: no wheezing, no rales, no rhonchi, clear to auscultation bilateral Cardiovascular: RRR, no significant murmur Gastrointestinal: soft, non-tender, no distention, positive bowel sounds Musculoskeletal: no edema, pulses present Neurological: non-focal, normal sensation, moves all 4 limbs Psychiatric: normal affect, A&O x 3 Skin: no rash Dx/Plan (1) Sigmoid diverticulitis Code(s): K57.32 - DVTRCLI OF LG INT W/O PERFORATION OR ABSCESS W/O BLEEDING Status: Acute Comment: On Empiric ABx,IVF (2) Colitis Code(s): K52.9 - NONINFECTIVE GASTROENTERITIS AND COLITIS, UNSPECIFIED Status : Acute Comment: on Empiric Antibiotics (3) Abdominal pain Code(s): R10.9 - UNSPECIFIED ABDOMINAL PAIN Status: Acute Qualifiers: Abdominal location: lower abdomen, unspecified Qualified Code(s): R10.30 - Lower abdominal pain, unspecified (4) Lupus Code(s): L93.0 - DISCOID LUPUS ERYTHEMATOSUS Status: Chronic Qualifiers: Lupus erythematosus form: unspecified Qualified Code(s): L93.0 - Discoid lupus erythematosus (5) H/O diverticulitis of colon Code(s): Z87.19 - PERSONAL HISTORY OF OTHER DISEASES OF THE DIGESTIVE SYSTEM Status: Chronic (6) H/O endometritis Code(s): Z87.42 - PERSONAL HISTORY OF OTH DISEASES OF THE FEMALE GENITAL TRACT Status: Chronic - Plan continue antibiotics, out of bed/ambulate, DVT proph w/SCDs cont ABx, IVF.supportive care -: GI following -: clinically impoving -: advance diet as tolerated * . Review of Systems - Review of Systems Constitutional: weakness, malaise. negative: fever, chills, sweats, other Eyes: negative: Pain, Vision Change, Conjunctivae Inflammation, Eyelid Inflammation, Redness, Other ENT: negative: Ear Pain, Ear Discharge, Nose Pain, Nose Discharge, Nose Congestion, Mouth Pain, Mouth Swelling, Throat Pain, Throat Swelling, Other Respiratory: negative: Cough, Dry, Shortness of Breath, Hemoptysis, SOB with Excertion, Pleuritic Pain, Sputum, Wheezing Cardiovascular: negative: chest pain, palpitations, orthopnea, paroxysmal nocturnal dyspnea, edema, light headedness, other Gastrointestinal: Nausea, Abdominal Pain, Diarrhea. negative: Vomiting, Constipation, Melena, Hematochezia, Other Genitourinary: negative: Dysuria, Frequency, Incontinence, Hematuria, Retention , Other Musculoskeletal: negative: Neck Pain, Shoulder Pain, Arm Pain, Back Pain, Hand Pain, Leg Pain, Foot Pain, Other Skin: negative: Rash, Lesions, Demian, Bruising, Other Neurological: negative: Weakness, Numbness, Incoordination, Change in Speech, Confusion, Seizures, Other - Medications/Allergies Allergies/Adverse Reactions: Allergies Allergy/AdvReac Type Severity Reaction Status Date / Time Sulfa (Sulfonamide Allergy Verified 01/02/18 16:20 Antibiotics) sulfamethoxazole Allergy Verified 04/16/13 12:32 [From Bactrim] trimethoprim [From Bactrim] Allergy Verified 04/16/13 12:32 Medications: Current Medications Acetaminophen (Tylenol) 650 mg PO Q4H PRN PRN Reason: Headache/Fever or Pain Last Admin: 01/03/18 17:30 Dose: 650 mg Hydrocodone Bitart/Acetaminophen ([place] 5/325) 1 tab PO Q4H PRN PRN Reason: Moderate Pain (4-6) Al Hydroxide/Mg Hydroxide (Maalox) 30 ml PO Q6H PRN PRN Reason: Heartburn or Indigestion Amlodipine Besylate (Norvasc) 5 mg PO DAILY [facility] Last Admin: 01/05/18 09:39 Dose: 5 mg Benzonatate (Tessalon) 100 mg PO Q4H PRN PRN Reason: Cough Bisacodyl (Dulcolax) 10 mg PO DAILYPRN PRN PRN Reason: Constipation Bisacodyl (Dulcolax) 10 mg PO DAILYPRN PRN PRN Reason: Constipation Calcium Carbonate (Tums) 1,000 mg PO Q4H PRN PRN Reason: Heartburn or Indigestion Clonidine (Catapres) 0.1 mg PO Q4H PRN PRN Reason: Systolic BP > 160 Enoxaparin Sodium (Lovenox) 40 mg SC 0900 [facility] Last Admin: 01/05/18 09:38 Dose: 40 mg Famotidine (Pepcid) 20 mg SLOW IVP Q12HR [facility] Last Admin: 01/05/18 09:40 Dose: 20 mg Folic Acid (Folvite) 1 mg PO DAILY [facility] Last Admin: 01/05/18 09:39 Dose: 1 mg Guaifenesin (Robitussin Sf) 200 mg PO Q4H PRN PRN Reason: Cough Hydralazine HCl (Apresoline) 10 mg SLOW IVP Q4H PRN PRN Reason: Systolic BP > 170 Hydroxychloroquine Sulfate (Plaquenil) 400 mg PO BID [facility] Last Admin: 01/05/18 09:39 Dose: 400 mg Sodium Chloride (Normal Saline 0.9%) 1,000 mls @ 100 mls/hr IV .Q10H [facility] Last Admin: 01/05/18 05:31 Dose: 1,000 mls Levofloxacin 500 mg/ Device 100 mls @ 100 mls/hr IVPB Q24HR [facility] Last Admin: 01/05/18 09:40 Dose: 100 mls Metronidazole 500 mg/ Device 100 mls @ 100 mls/hr IVPB Q8HR [facility] Last Admin: 01/05/18 13:11 Dose: 100 mls Levothyroxine Sodium (Synthroid) 150 mcg PO 0600 [facility] Last Admin: 01/05/18 05:36 Dose: 150 mcg Loratadine (Claritin) 10 mg PO DAILYPRN PRN PRN Reason: Sinus Symptoms Lorazepam (Ativan) 1 mg PO Q4H PRN PRN Reason: Anxiety/Agitation Meperidine HCl (Demerol) 25 mg SLOW IVP Q3H PRN PRN Reason: Pain Methotrexate Sodium (Methotrexate Sodium) 15 mg PO Garner@0900 [facility] Last Admin: 01/03/18 12:44 Dose: 15 mg Morphine Sulfate (Morphine) 2 mg SLOW IVP Q4H PRN PRN Reason: Moderate Pain (4-6) Last Admin: 01/04/18 04:52 Dose: 2 mg Nitroglycerin (Nitrostat) 0.4 mg SL Q5MIN PRN PRN Reason: Chest Pain Ondansetron HCl (Zofran) 4 mg IVP Q6H PRN PRN Reason: Nausea/Vomiting Last Admin: 01/04/18 11:02 Dose: 4 mg Promethazine HCl (Phenergan) 25 mg IM/IV Q4H PRN PRN Reason: Nausea/Vomiting Last Admin: 01/05/18 13:13 Dose: 25 mg Senna (Senokot) 2 tab PO HSPRN PRN PRN Reason: Constipation Sodium Chloride (Flush - Normal Saline) 10 ml IVF Q12HR [facility] Last Admin: 01/05/18 09:40 Dose: 10 ml Sodium Chloride (Flush - Normal Saline) 10 ml IVF PRN PRN PRN Reason: Saline Flush Tramadol HCl (Ultram) 50 mg PO Q4H PRN PRN Reason: Moderate Pain (4-6)
--- NOTE | 2018-01-05 21:23 | PRG ---
DATE OF SERVICE: 01/05/2018 GI INPATIENT DAILY PROGRESS NOTE SUBJECTIVE: Mrs. Callaway is doing pretty well tonight from an abdominal standpoint. She has been shane ating her liquid diet. Nausea is minimal and she does not request any pain medication since yesterda y morning. This afternoon, she unfortunately had what sounds like a dystonic reaction to Phenergan, but symptoms from that seem to have resolved completely by now. OBJECTIVE: VITAL SIGNS: Temperature 98.0, pulse 77, blood pressure 108/70, 94% oxygen saturation on room air. GENERAL: No acute distress. HEART: Regular rate and rhythm. LUNGS: Clear to auscultation bilaterally. ABDOMEN: Bowel sounds present, soft, some tenderness to palpation of the lower abdomen, but no guard ing, rebound tenderness. EXTREMITIES: No peripheral edema. ASSESSMENT AND PLAN: 1. Sigmoid diverticulitis, recurrent. 2. Left lower quadrant abdominal pain, improving. 3. Nausea, improving. From a diverticulitis standpoint, the patient has continued to improve on the IV antibiotics. We will try to advance her diet to regular diet for tomorrow morning. I think if s he can tolerate her diet and is feeling well tomorrow, she could potentially be discharged from the [facility]. We will plan to have her follow up closely in the GI outpatient clinic with Dr. Granda or ирина r Physician [facility] [employer]inder next week. 4. I would have the patient finish out 10 days total of antibiotics. Her levofloxacin and metronida zole can be transitioned to oral upon discharge. I would also recommend she receive a prescription f or Zofran 4 mg p.o. every 8 hours as needed, in case she has recurrent nausea on the antibiotics. Please call any time with questions or concerns.
[2018-01-06] MEDS: Sodium Chloride 0.9% 1,000 ML IV SCH ×3 (03:20→18:38)
[2018-01-06] MEDS: Levothyroxine 150 MCG TAB PO SCH (05:25)
[2018-01-06] MEDS: metroNIDAZOLE 500 MG in Premix Bag 1 BAG IVPB SCH ×3 (05:25→21:48)
[2018-01-06] MEDS: Hydroxychloroquine Sulfate 200 MG TAB PO SCH ×2 (08:40→20:35)
[2018-01-06] MEDS: Amlodipine 5 MG TAB PO SCH (08:41)
[2018-01-06] MEDS: Folic Acid 1 MG TAB PO SCH (08:41)
[2018-01-06] MEDS: Famotidine/PF 20 mg/2ml Vial SLOW IVP SCH ×2 (08:43→20:35)
[2018-01-06] MEDS: Enoxaparin Sodium 40 MG/0.4 ML SYRINGE SC SCH (08:43)
--- NOTE | 2018-01-06 11:00 | PRG ---
DATE OF SERVICE: 01/06/2018. SUBJECTIVE: Ms. Callaway is feeling a lot better. She was able to tolerate her regular diet for st with good appetite and only mild nausea at this time. Abdominal pain has essentially resolved. S he had a small bowel movement earlier today. She has remained afebrile. OBJECTIVE: VITAL SIGNS: Temperature 97.9, pulse is 80, blood pressure 118/75, 98% oxygen saturation on room air . GENERAL: A 57-year-old woman appearing well, walking about the room in no distress. HEART: Regular rate and rhythm. LUNGS: Clear to auscultation bilaterally. ABDOMEN: Bowel sounds present, soft, some tenderness to palpation in the lower abdomen, no guarding or rebound tenderness. EXTREMITIES: No peripheral edema. ASSESSMENT AND PLAN: 1. Sigmoid diverticulitis, recurrent, clinically resolving. 2. Left lower quadrant abdominal pain, resolving. 3. Nausea, resolving. She has been able to progress her diet and is continuing to do well. I think she could be discharged from the hospital from a GI perspective. Finish out course of oral antibiot ics upon discharge, as outlined in my prior note. We would also give her some Zofran to take p.r.n. We will have her follow up in the GI clinic with Dr. Granda or her PA in the next week or two.
[2018-01-06] MEDS: Ondansetron HCl/PF 4 MG/2 ML Vial IVP PRN (11:28)
[2018-01-06] MEDS ORDERED: metroNIDAZOLE 500 MG/100 ML BAG ONE (14:13)
--- NOTE | 2018-01-06 15:04 | PDOC.PN ---
- Subjective Encounter Start Date: 01/06/18 Encounter Start Time: 15:02 Subjective: feels much better but still some abd pain & nausea after eating - Objective MAR Reviewed: Yes Vital Signs & Weight: Vital Signs (12 hours) Temp Pulse Resp BP BP BP Pulse Ox 01/06/18 12:06 98.1 F 86 16 119/73 98 01/06/18 08:41 80 118/75 01/06/18 08:00 97.9 F 80 16 118/75 98 Weight Admit Weight 154 lb 9 oz Weight 154 lb 9 oz I&O: 01/05/18 01/06/18 01/07/18 06:59 06:59 06:59 Intake Total 2580 720 Balance 2580 720 Result Diagrams: 01/03/18 03:38 01/02/18 16:30 Phys Exam - Physical Examination Constitutional: NAD HEENT: PERRLA, moist MMs, sclera anicteric, oral pharynx no lesions Neck: no nodes, no JVD, supple, full ROM Respiratory: no wheezing, no rales, no rhonchi, clear to auscultation bilateral Cardiovascular: RRR, no significant murmur, no rub Gastrointestinal: soft, no distention, positive bowel sounds minimal TTP Musculoskeletal: no edema, pulses present Neurological: non-focal, normal sensation, moves all 4 limbs Psychiatric: normal affect, A&O x 3 Skin: no rash Dx/Plan (1) Sigmoid diverticulitis Code(s): K57.32 - DVTRCLI OF LG INT W/O PERFORATION OR ABSCESS W/O BLEEDING Status: Acute Comment: On Empiric ABx,IVF (2) Colitis Code(s): K52.9 - NONINFECTIVE GASTROENTERITIS AND COLITIS, UNSPECIFIED Status : Acute Comment: on Empiric Antibiotics (3) Abdominal pain Code(s): R10.9 - UNSPECIFIED ABDOMINAL PAIN Status: Acute Qualifiers: Abdominal location: lower abdomen, unspecified Qualified Code(s): R10.30 - Lower abdominal pain, unspecified (4) Lupus Code(s): L93.0 - DISCOID LUPUS ERYTHEMATOSUS Status: Chronic Qualifiers: Lupus erythematosus form: unspecified Qualified Code(s): L93.0 - Discoid lupus erythematosus (5) H/O diverticulitis of colon Code(s): Z87.19 - PERSONAL HISTORY OF OTHER DISEASES OF THE DIGESTIVE SYSTEM Status: Chronic (6) H/O endometritis Code(s): Z87.42 - PERSONAL HISTORY OF OTH DISEASES OF THE FEMALE GENITAL TRACT Status: Chronic - Plan plan discussed w/ family, continue antibiotics, out of bed/ambulate, DVT proph w /SCDs cont supportive care. -: Pt wants to wait another day before she feels safe to go home-agree -: cont as before w IV ABx. Prn anti-emetics -: Dystonic reaction w Phergan.will avoid altogether -: has not used any pain meds for 2 days.HD stable * . Review of Systems - Review of Systems Constitutional: negative: fever, chills, sweats, weakness, malaise, other ENT: negative: Ear Pain, Ear Discharge, Nose Pain, Nose Discharge, Nose Congestion, Mouth Pain, Mouth Swelling, Throat Pain, Throat Swelling, Other Respiratory: negative: Cough, Dry, Shortness of Breath, Hemoptysis, SOB with Excertion, Pleuritic Pain, Sputum, Wheezing Cardiovascular: negative: chest pain, palpitations, orthopnea, paroxysmal nocturnal dyspnea, edema, light headedness, other Gastrointestinal: Nausea, Abdominal Pain Genitourinary: negative: Dysuria, Frequency, Incontinence, Hematuria, Retention , Other Musculoskeletal: negative: Neck Pain, Shoulder Pain, Arm Pain, Back Pain, Hand Pain, Leg Pain, Foot Pain, Other Skin: negative: Rash, Lesions, Demian, Bruising, Other Neurological: negative: Weakness, Numbness, Incoordination, Change in Speech, Confusion, Seizures, Other - Medications/Allergies Allergies/Adverse Reactions: Allergies Allergy/AdvReac Type Severity Reaction Status Date / Time trimethoprim [From Bactrim] Allergy Severe Verified 01/06/18 11:31 promethazine [From Phenergan] Allergy Verified 01/05/18 15:34 Sulfa (Sulfonamide Allergy Verified 01/05/18 15:34 Antibiotics) sulfamethoxazole Allergy Verified 04/16/13 12:32 [From Bactrim] Medications: Current Medications Acetaminophen (Tylenol) 650 mg PO Q4H PRN PRN Reason: Headache/Fever or Pain Last Admin: 01/03/18 17:30 Dose: 650 mg Hydrocodone Bitart/Acetaminophen ([place] 5/325) 1 tab PO Q4H PRN PRN Reason: Moderate Pain (4-6) Al Hydroxide/Mg Hydroxide (Maalox) 30 ml PO Q6H PRN PRN Reason: Heartburn or Indigestion Amlodipine Besylate (Norvasc) 5 mg PO DAILY [facility] Last Admin: 01/06/18 08:41 Dose: 5 mg Benzonatate (Tessalon) 100 mg PO Q4H PRN PRN Reason: Cough Bisacodyl (Dulcolax) 10 mg PO DAILYPRN PRN PRN Reason: Constipation Bisacodyl (Dulcolax) 10 mg PO DAILYPRN PRN PRN Reason: Constipation Calcium Carbonate (Tums) 1,000 mg PO Q4H PRN PRN Reason: Heartburn or Indigestion Clonidine (Catapres) 0.1 mg PO Q4H PRN PRN Reason: Systolic BP > 160 Enoxaparin Sodium (Lovenox) 40 mg SC 0900 [facility] Last Admin: 01/06/18 08:43 Dose: 40 mg Famotidine (Pepcid) 20 mg SLOW IVP Q12HR [facility] Last Admin: 01/06/18 08:43 Dose: 20 mg Folic Acid (Folvite) 1 mg PO DAILY [facility] Last Admin: 01/06/18 08:41 Dose: 1 mg Guaifenesin (Robitussin Sf) 200 mg PO Q4H PRN PRN Reason: Cough Hydralazine HCl (Apresoline) 10 mg SLOW IVP Q4H PRN PRN Reason: Systolic BP > 170 Hydroxychloroquine Sulfate (Plaquenil) 400 mg PO BID [facility] Last Admin: 01/06/18 08:40 Dose: 400 mg Sodium Chloride (Normal Saline 0.9%) 1,000 mls @ 100 mls/hr IV .Q10H [facility] Last Admin: 01/06/18 05:25 Dose: 1,000 mls Levofloxacin 500 mg/ Device 100 mls @ 100 mls/hr IVPB Q24HR [facility] Last Admin: 01/06/18 08:54 Dose: 100 mls Metronidazole 500 mg/ Device 100 mls @ 100 mls/hr IVPB Q8HR [facility] Last Admin: 01/06/18 14:10 Dose: 100 mls Levothyroxine Sodium (Synthroid) 150 mcg PO 0600 [facility] Last Admin: 01/06/18 05:25 Dose: 150 mcg Loratadine (Claritin) 10 mg PO DAILYPRN PRN PRN Reason: Sinus Symptoms Lorazepam (Ativan) 1 mg PO Q4H PRN PRN Reason: Anxiety/Agitation Meperidine HCl (Demerol) 25 mg SLOW IVP Q3H PRN PRN Reason: Pain Methotrexate Sodium (Methotrexate Sodium) 15 mg PO Garner@0900 [facility] Last Admin: 01/03/18 12:44 Dose: 15 mg Morphine Sulfate (Morphine) 2 mg SLOW IVP Q4H PRN PRN Reason: Moderate Pain (4-6) Last Admin: 01/04/18 04:52 Dose: 2 mg Nitroglycerin (Nitrostat) 0.4 mg SL Q5MIN PRN PRN Reason: Chest Pain Ondansetron HCl (Zofran) 4 mg IVP Q6H PRN PRN Reason: Nausea/Vomiting Last Admin: 01/06/18 11:28 Dose: 4 mg Promethazine HCl (Phenergan) 25 mg IM/IV Q4H PRN PRN Reason: Nausea/Vomiting Last Admin: 01/05/18 13:13 Dose: 25 mg Senna (Senokot) 2 tab PO HSPRN PRN PRN Reason: Constipation Sodium Chloride (Flush - Normal Saline) 10 ml IVF Q12HR [facility] Last Admin: 01/06/18 08:44 Dose: Not Given Sodium Chloride (Flush - Normal Saline) 10 ml IVF PRN PRN PRN Reason: Saline Flush Tramadol HCl (Ultram) 50 mg PO Q4H PRN PRN Reason: Moderate Pain (4-6)
[2018-01-07] MEDS: Levothyroxine 150 MCG TAB PO SCH (05:16)
[2018-01-07] MEDS: metroNIDAZOLE 500 MG in Premix Bag 1 BAG IVPB SCH ×2 (05:16→13:59)
[2018-01-07] MEDS: Sodium Chloride 0.9% 1,000 ML IV SCH (05:17)
[2018-01-07] MEDS: Hydroxychloroquine Sulfate 200 MG TAB PO SCH (08:26)
[2018-01-07] MEDS: Folic Acid 1 MG TAB PO SCH (08:26)
[2018-01-07] MEDS: Famotidine/PF 20 mg/2ml Vial SLOW IVP SCH (08:27)
[2018-01-07] MEDS: Enoxaparin Sodium 40 MG/0.4 ML SYRINGE SC SCH (08:27)
[2018-01-07] MEDS: Ondansetron HCl/PF 4 MG/2 ML Vial IVP PRN (10:02)
[2018-01-07 11:31] VITALS: TEMP 98.1
[2018-01-07] MEDS: Amlodipine 5 MG TAB PO SCH (12:23)
[2018-01-07 16:48] VITALS: BP 119/81
--- NOTE | 2018-01-08 00:42 | DIS ---
DATE OF ADMISSION: 01/02/2018 DATE OF DISCHARGE: 01/07/2018 CONDITION AT THE TIME OF DISCHARGE: Stable and improved. DISCHARGE DISPOSITION: Home. PRIMARY CARE PHYSICIAN: Gregorio Leong M.D. PRIMARY SENIOR HEALTH CONSULTANT: Bassam Guy MD DISCHARGE DIAGNOSES: 1. Sigmoid diverticulitis. 2. Abdominal pain and nausea secondary to sigmoid diverticulitis. 3. History of recurrent diverticulitis. 4. History of systemic lupus erythematosus. 5. History of endometriosis. DISCHARGE MEDICATIONS: As follows: Ciprofloxacin 500 mg p.o. b.i.d. for 7 more days, metronidazole 250 mg p.o. t.i.d. for 7 more days, Zofran p.r.n. as needed. Resume home medications as follows: Le vothyroxine 150 mcg daily, tizanidine 4 mg at bedtime, methotrexate 2.5 mg as needed, clonidine 0.1 m g as needed, folic acid 1 mg daily, amlodipine 5 mg daily, Medrol Dosepak as needed, lansoprazole 30 mg daily, hydroxychloroquine 400 mg p.o. b.i.d., and Nucynta 50 mg p.o. 6 hours. PROCEDURES DONE IN THE HOSPITAL: CT scan of the abdomen and pelvis upon presentation, which showed p ossible thickening in the sigmoid and distal descending colon, likely colitis versus diverticulitis. INHOUSE CONSULTATION: Gastroenterology, Dr. Bassam Guy. HISTORY OF PRESENTING ILLNESS: Ms. Callaway is a very pleasant, 57-year-old female with known history of multiple attacks of diverticulitis in the past as well as lupus, on immunosuppressive medications an d hypothyroidism, who presented to the emergency room with complaints of abdominal pain and vomiting. She follows up with Gastroenterology, Dr. Rina Granda in the outpatient setting for this. Upon p resentation, she underwent a CT scan of the abdomen and pelvis, which showed mild colitis versus dive rticulitis in the sigmoid and distal descending colon. She was started on empiric IV antibiotics, IV fluids, and n.p.o. status and was admitted for further evaluation. Gastroenterology was consulted. Please see admission history and physical for further detail. She was otherwise hemodynamically sta ble upon presentation. HOSPITAL COURSE: The patient had slow improvement in her symptoms, but her symptoms improved on a gr adual basis day by day. By the time of discharge, she was able to tolerate a full diet without any a bdominal pain and only mild nausea. She was cleared for discharge by Gastroenterology, who were foll owing along. Dr. Guy has seen the patient with me in the hospital on a daily basis. She was seen and examined prior to discharge. PHYSICAL EXAMINATION: VITAL SIGNS: This morning, temperature 98.1, pulse of 91, respirations 18, saturating 100% on room a ir, blood pressure 117/62. GENERAL: No acute distress, awake, alert, oriented x3. CHEST: Clear to auscultation bilaterally. CARDIOVASCULAR: Rate and rhythm is regular. ABDOMEN: Nontender to palpation. No rebound, guarding or rigidity. EXTREMITIES: Free of any cyanosis, clubbing, or edema. She is instructed to follow up with Dr. Granda in the outpatient setting as well as with primary care physician, Dr. Leong as well in about 1 week or so. She verbalized understanding.
== END 2018-01-07 16:32 | disposition home or self-care (01) | DRG 392 ==
LOC: SCSER 11:33 → T4-B 12:00
PROVIDERS: ADMIT Internal Medicine; ATTEND Internal Medicine
DX: K57.32 Diverticulitis of large intestine without perforation or abscess without bleeding (principal); E03.9 Hypothyroidism, unspecified; M32.9 Systemic lupus erythematosus, unspecified; K21.9 Gastro-esophageal reflux disease without esophagitis; G89.29 Other chronic pain; M54.9 Dorsalgia, unspecified; I10 Essential (primary) hypertension; Z91.040 Latex allergy status; Z88.2 Allergy status to sulfonamides; Z87.891 Personal history of nicotine dependence; Z90.49 Acquired absence of other specified parts of digestive tract; Z90.710 Acquired absence of both cervix and uterus; Z83.3 Family history of diabetes mellitus; Z82.49 Family history of ischemic heart disease and other diseases of the circulatory system
CPT/HCPCS: 36415; 74176; 80053; 81003; 81015; 83605; 83690; 85025; 96361; 96365; 96367; 96375; A4216; J1650; J1885; J1956; J2270; J2405; J2550; J8610; S0028

== ENCOUNTER 2018-01-21 10:17 | Emergency (ER) | payer BC ==
[~2018-01-21 10:17] MED LIST: Iopamidol 370 76% 100 ML VIAL ONE
[2018-01-21] MEDS ORDERED: Morphine 4 MG/ML VIAL ONE ×2 (10:54→12:24)
[2018-01-21] MEDS ORDERED: Ondansetron HCl/PF 4 MG/2 ML Vial ONE (10:54)
[2018-01-21 10:59] LABS: #Basophils 0.1 thou/uL (0.0-0.2); #Eosinphils 0.1 thou/uL (0.0-0.7); #Lymphocytes 2.9 thou/uL (1.20-3.40); #Monocytes 0.5 thou/uL (0.11-0.59); #Neutrophils 2.5 thou/uL (1.40-6.50); %Basophils 2.2 % (0.0-1.0); %Lymphocytes 47.1 % (21.0-51.0); %Monocytes 8.6 % (0.0-10.0); %Neutrophils 41.1 % (42.0-75.0); Mean Corpuscular HGB CONC 33.2 g/dL (32.0-36.0); Mean Corpuscular Hemoglobin 29.9 pg (27.0-31.0); Mean Corpuscular Volume 89.9 fL (78.0-98.0); Mean Platelet Volume 7.2 fL (7.4-10.4); Platelet Count 269 thou/uL (130-400); RBC Distribution Width 12.8 % (11.5-14.5); Red Blood Cell (RBC) Count 4.68 mill/uL (4.20-5.40); White Blood Cell (WBC) Count 6.1 thou/uL (4.8-10.8)
[2018-01-21 11:03] LABS: ALT (SGPT) 12 U/L (8-55); AST (SGOT) 17 U/L (5-34); Albumin 4.5 g/dL (3.5-5.0); Alkaline Phosphatase 97 U/L (40-150); Anion Gap 13 mmol/L (10-20); BUN (Urea Nitrogen) 14 mg/dL (9.8-20.1); Bilirubin, Total 0.4 mg/dL (0.2-1.2); Calc. Creatinine Clearance 0 mL/min (70-130); Calcium 9.6 mg/dL (7.8-10.44); Carbon Dioxide 26 mmol/L (22-29); Chloride 105 mmol/L (98-107); Estimated GFR-MDRD 83; Globulin 2.7 g/dL (2.4-3.5); Glucose 73 mg/dL (70-105); Lipase 36 U/L (8-78); Potassium 3.8 mmol/L (3.5-5.1); Protein, Total 7.2 g/dL (6.0-8.3); Sodium 140 mmol/L (136-145)
[2018-01-21 11:12] LABS: Bilirubin Negative (Negative); Blood, Urine Negative (Negative); Clarity Clear (Clear); Glucose, Urine (Dipstick) Negative (Negative); Leukocyte Negative (Negative); Nitrite Negative (Negative); Protein, Urine (Dipstick) Negative (Neg-Trace); Urobilinogen 0.2 mg/dL (0.2-1.0)
--- NOTE | 2018-01-21 14:28 | CT ---
CT ABDOMEN AND PELVIS WITH IV CONTRAST: Date: 01/21/18 HISTORY: Abdominal pain. FINDINGS: Comparison made with exams of 01/02/18 and 06/16/17. There are mild dependent changes in the lung bases. The liver, spleen, pancreas, adrenal glands, and kidneys are normal. There are postop changes of cholecystectomy. No free air, free fluid, or lymphade nopathy seen in the abdomen or pelvis. The small bowel loops are not abnormally dilated. The appendix is not abnormally dilated. There is minimal sigmoid diverticulosis without evidence of diverticuliti s. Postop changes in the lower lumbar spine are again noted. IMPRESSION: Minimal sigmoid diverticulosis. No evidence of diverticulitis or abscess formation. POS: [facility]
== END 2018-01-21 13:55 | disposition home or self-care (01) ==
LOC: SCSER 10:17
DX: K59.00 Constipation, unspecified (principal); R11.0 Nausea; E03.9 Hypothyroidism, unspecified; K21.9 Gastro-esophageal reflux disease without esophagitis; I10 Essential (primary) hypertension; Z79.899 Other long term (current) drug therapy
CPT/HCPCS: 74177; 80053; 81003; 83605; 83690; 85025; 96361; 96374; 96375; 96376; J2270; J2405

== ENCOUNTER 2018-02-04 04:54 | Emergency (ER) | payer BC ==
[2018-02-04] MEDS ORDERED: Morphine 4 MG/ML VIAL ONE ×2 (05:47→07:24)
[2018-02-04 06:10] LABS: #Monocytes 0.3 thou/uL (0.11-0.59); #Neutrophils 6.2 thou/uL (1.40-6.50); %Basophils 0.1 % (0.0-1.0); %Lymphocytes 13.2 % (21.0-51.0); %Monocytes 3.9 % (0.0-10.0); %Neutrophils 82.8 % (42.0-75.0); Hemoglobin 12.7 g/dL (12.0-16.0); Mean Corpuscular HGB CONC 33.6 g/dL (32.0-36.0); Mean Corpuscular Hemoglobin 29.2 pg (27.0-31.0); Mean Corpuscular Volume 87.1 fL (78.0-98.0); Mean Platelet Volume 7.1 fL (7.4-10.4); Platelet Count 249 thou/uL (130-400); RBC Distribution Width 12.5 % (11.5-14.5); Red Blood Cell (RBC) Count 4.34 mill/uL (4.20-5.40); White Blood Cell (WBC) Count 7.4 thou/uL (4.8-10.8)
[2018-02-04 06:22] LABS: ALT (SGPT) 12 U/L (8-55); AST (SGOT) 13 U/L (5-34); Albumin 4.4 g/dL (3.5-5.0); Alkaline Phosphatase 92 U/L (40-150); Anion Gap 14 mmol/L (10-20); BUN (Urea Nitrogen) 15 mg/dL (9.8-20.1); Bilirubin, Total 0.5 mg/dL (0.2-1.2); Calc. Creatinine Clearance 0 mL/min (70-130); Calcium 9.5 mg/dL (7.8-10.44); Carbon Dioxide 24 mmol/L (22-29); Chloride 106 mmol/L (98-107); Estimated GFR-MDRD 81; Globulin 2.6 g/dL (2.4-3.5); Glucose 112 mg/dL (70-105); Lipase 18 U/L (8-78); Potassium 4.4 mmol/L (3.5-5.1); Sodium 140 mmol/L (136-145)
--- NOTE | 2018-02-04 09:38 | CT ---
PRELIMINARY REPORT/[facility]/EMERGENTY AFTER-HOURS PROCEDURE CT Abdomen and Pelvis With Intravenous Contrast EXAM DATE/TIME: 02/04/2018 6:26 AM CLINICAL HISTORY: 57 years old, female; Pain; Abdominal pain; Generalized; Prior surgery; Surgery date: 6+ months; Surg danyell type: Tricia. Hsto; Patient HX: PT with significant history of recurrent diverticulitis. Pw lower abdominal pain. Sharp, intense, worse every time that she eats. Recent hospitalization 1 month ago, then CT 2 weeks ago showed constipation. 1 week ago, she saw her colon specialist in [place] who set her up for a colonoscopy in february however, her pain is worsening and is especially bad between 2 a nd 4 in the morning. . . . Back surgery x 2, ex lap x 2, partial hysterectomy, oophorectomy, cholecys tectomy, hemorrhoidectomy TECHNIQUE: Axial computed tomography images of the abdomen and pelvis with intravenous contrast. Coronal reformatted images were created and reviewed. CONTRAST: 85 ml of ISOVUE administered intravenously. COMPARISON: No relevant prior studies available. FINDINGS: Lower thorax: Mild dependent changes are present in the lung bases. ABDOMEN: Liver: Normal. No mass. Gallbladder and bile ducts: Status post cholecystectomy. Pancreas: Normal. No ductal dilation. Spleen: Normal. No splenomegaly. Adrenals: Normal. No mass. Kidneys and ureters: Normal. No hydronephrosis. Stomach and bowel: Diverticulosis is present with no CT evidence of diverticulitis. Appendix: The appendix is seen and is normal in appearance. PELVIS: Bladder: Unremarkable as visualized. Reproductive: Status post hysterectomy. ABDOMEN and PELVIS: Intraperitoneal space: Normal. No free air. No significant fluid collection. Bones/joints: As your hardware in the lower lumbar spine. Soft tissues: Unremarkable. Vasculature: Normal. No abdominal aortic aneurysm. Lymph nodes: Normal. No enlarged lymph nodes. IMPRESSION: No definite evidence of acute abdominal or pelvic pathology. Remainder of findings as described above . Thank you for allowing us to participate in the care of your patient. Dictated and Authenticated by: Renee Ball MD 02/04/2018 7:33 AM Central Time ([place] & [place]) FINAL REPORT CT ABDOMEN WITH CONTRAST CT PELVIS WITH COTNRAST: COMPARISON: 01/21/2018. HISTORY: Lower quadrant abdominal pain. Diverticulitis. FINDINGS: This report is in agreement with the preliminary report by [facility]. There is no acute process in the abd omen or pelvis. There is diverticulosis, without evidence of diverticulitis. Postsurgical changes s econdary to previous cholecystectomy are noted with dilatation of the intra- and extrahepatic biliary system. POS: [facility]
== END 2018-02-04 07:58 | disposition home or self-care (01) ==
LOC: SCSER 04:54
DX: K57.90 Diverticulosis of intestine, part unspecified, without perforation or abscess without bleeding (principal); M32.9 Systemic lupus erythematosus, unspecified; E03.9 Hypothyroidism, unspecified; K21.9 Gastro-esophageal reflux disease without esophagitis; I10 Essential (primary) hypertension; Z79.899 Other long term (current) drug therapy
CPT/HCPCS: 74177; 80053; 83690; 85025; 96361; 96374; 96376; J2270

== ENCOUNTER 2018-02-07 13:07 | Emergency (ER) | payer BC ==
[2018-02-07 13:41] LABS: #Basophils 0.1 thou/uL (0.0-0.2); #Lymphocytes 1.3 thou/uL (1.20-3.40); #Monocytes 0.3 thou/uL (0.11-0.59); #Neutrophils 9.6 thou/uL (1.40-6.50); %Basophils 0.8 % (0.0-1.0); %Eosinophils 0.3 % (0.0-10.0); %Lymphocytes 11.2 % (21.0-51.0); %Monocytes 2.4 % (0.0-10.0); %Neutrophils 85.3 % (42.0-75.0); Mean Corpuscular HGB CONC 32.7 g/dL (32.0-36.0); Mean Corpuscular Hemoglobin 29.2 pg (27.0-31.0); Mean Corpuscular Volume 89.1 fL (78.0-98.0); Mean Platelet Volume 6.5 fL (7.4-10.4); Platelet Count 249 thou/uL (130-400); RBC Distribution Width 12.8 % (11.5-14.5); White Blood Cell (WBC) Count 11.2 thou/uL (4.8-10.8)
[2018-02-07] MEDS ORDERED: Ondansetron PF 4 MG/2 ML Vial ONE (13:52)
[2018-02-07] MEDS ORDERED: Ketorolac Tromethamine 30 MG/ML VIAL ONE (13:52)
[2018-02-07 13:53] LABS: ALT (SGPT) 13 U/L (8-55); AST (SGOT) 16 U/L (5-34); Albumin 4.3 g/dL (3.5-5.0); Alkaline Phosphatase 107 U/L (40-150); Anion Gap 16 mmol/L (10-20); BUN (Urea Nitrogen) 18 mg/dL (9.8-20.1); Bilirubin, Total 0.5 mg/dL (0.2-1.2); Calc. Creatinine Clearance 0 mL/min (70-130); Carbon Dioxide 23 mmol/L (22-29); Chloride 104 mmol/L (98-107); Estimated GFR-MDRD 69; Globulin 2.7 g/dL (2.4-3.5); Glucose 124 mg/dL (70-105); Lipase 28 U/L (8-78); Potassium 4.1 mmol/L (3.5-5.1); Sodium 139 mmol/L (136-145)
== END 2018-02-07 14:50 | disposition home or self-care (01) ==
LOC: SCSER 13:07
DX: R10.30 Lower abdominal pain, unspecified (principal); K21.9 Gastro-esophageal reflux disease without esophagitis; I10 Essential (primary) hypertension; E03.9 Hypothyroidism, unspecified; Z79.899 Other long term (current) drug therapy
CPT/HCPCS: 36415; 80053; 83605; 83690; 85025; 94760; 96361; 96372; 96374; 96375; J1885; J2405

== ENCOUNTER 2018-03-05 13:50 | Outpatient (CLI) | payer BC ==
--- NOTE | 2018-03-05 19:01 | MRI ---
MRI OF ABDOMEN WITH AND WITHOUT IV CONTRAST (MR enterography) 03/05/18 HISTORY: Abdominal pain. FINDINGS: Correlation is made with the CT scan of 02/04/18. The liver, spleen, pancreas, and adrenal glands are normal. The patient is post cholecystectomy and h ysterectomy. Tiny cysts are seen in the kidneys. No free air, free fluid, or lymphadenopathy seen in the abdomen or pelvis. The small bowel loops are not abnormally dilated. No wall thickening of the loops of small bowel is s een. No small bowel stricture or obstruction is identified. There are sigmoid diverticula. No pericol onic inflammatory changes are seen. No abnormally loculated fluid collection is noted in the abdomen or pelvis to suggest abscess formati on. No abnormal postcontrast enhancement is noted. There are postop changes in the lower lumbar spine. IMPRESSION: Sigmoid diverticulosis without evidence of diverticulitis or abscess formation. POS: [facility]
== END 2018-03-05 13:51 | disposition home or self-care (01) ==
LOC: MRI 13:50
DX: K57.32 Diverticulitis of large intestine without perforation or abscess without bleeding (principal); R10.9 Unspecified abdominal pain; K57.30 Diverticulosis of large intestine without perforation or abscess without bleeding
CPT/HCPCS: 74183; J1610

== ENCOUNTER 2018-03-30 16:07 | Emergency (ER) | payer BC ==
[2018-03-30] MEDS ORDERED: Iopamidol 370 76% 50 ML VIAL FS ONE (17:09)
[2018-03-30] MEDS ORDERED: Metoclopramide HCl 10 MG/2 ML VIAL ONE (17:24)
[2018-03-30] MEDS ORDERED: diphenhydrAMINE 50 MG/ML VIAL ONE (17:24)
[2018-03-30 17:45] LABS: #Eosinphils 0.1 thou/uL (0.0-0.7); #Lymphocytes 0.9 thou/uL (1.20-3.40); #Monocytes 1.3 thou/uL (0.11-0.59); #Neutrophils 12.9 thou/uL (1.40-6.50); %Basophils 0.3 % (0.0-1.0); %Eosinophils 0.4 % (0.0-10.0); %Lymphocytes 5.9 % (21.0-51.0); %Monocytes 8.2 % (0.0-10.0); %Neutrophils 85.1 % (42.0-75.0); Hemoglobin 14.3 g/dL (12.0-16.0); Mean Corpuscular HGB CONC 33.8 g/dL (32.0-36.0); Mean Corpuscular Hemoglobin 30.8 pg (27.0-31.0); Mean Corpuscular Volume 91.1 fL (78.0-98.0); Mean Platelet Volume 6.3 fL (7.4-10.4); Platelet Count 342 thou/uL (130-400); RBC Distribution Width 13.5 % (11.5-14.5); Red Blood Cell (RBC) Count 4.64 mill/uL (4.20-5.40); White Blood Cell (WBC) Count 15.1 thou/uL (4.8-10.8)
[2018-03-30 18:05] LABS: Bilirubin Moderate (Negative); Blood, Urine Negative (Negative); Clarity CLOUDY (Clear); Glucose, Urine (Dipstick) Negative (Negative); Leukocyte Small (Negative); Nitrite Negative (Negative); Protein, Urine (Dipstick) 100 mg/dL (Neg-Trace); Specific Gravity, Urine 1.022 (1.002-1.036); pH, Urine 5.5 (5.0-9.0)
[2018-03-30 18:09] LABS: Pathc Cast-AUWi Flag 7.26 (0-2.49)
[2018-03-30 18:10] LABS: ALT (SGPT) 20 U/L (8-55); AST (SGOT) 23 U/L (5-34); Albumin 4.4 g/dL (3.5-5.0); Alkaline Phosphatase 109 U/L (40-150); Anion Gap 10 mmol/L (10-20); BUN (Urea Nitrogen) 10 mg/dL (9.8-20.1); Bilirubin, Total 0.5 mg/dL (0.2-1.2); CK (CPK) 41 U/L (29-168); Calc. Creatinine Clearance 0 mL/min (70-130); Calcium 9.3 mg/dL (7.8-10.44); Carbon Dioxide 27 mmol/L (22-29); Chloride 108 mmol/L (98-107); Estimated GFR-MDRD 58; Globulin 3.1 g/dL (2.4-3.5); Glucose 124 mg/dL (70-105); Lipase 49 U/L (8-78); Potassium 3.5 mmol/L (3.5-5.1); Protein, Total 7.5 g/dL (6.0-8.3); Sodium 141 mmol/L (136-145)
[2018-03-30 18:19] LABS: Bacteria/HPF 2+ HPF (None Seen); Crystals/HPF 2+ CA OXALATE HPF (Negative); Manual Microscopic Reviewed? No Path Casts Seen
[2018-03-30] MEDS ORDERED: cefTRIAXone\\ROCEPHIN 2 GM VIAL ONE (19:16)
--- NOTE | 2018-03-30 20:56 | CT ---
ABDOMEN AND PELVIC CT SCAN WITH IV CONTRAST: 03/30/18 HISTORY: 57-year-old female with history of nausea and vomiting and prior diarrhea. There is some minimal increased linear and interstitial markings in the lung bases, some of which kathia ears to be stable from a prior 02/04/18 study. There may well be some associated mild subsegmental at electasis. Status post cholecystectomy without ductal dilatation. The pancreas, spleen, adrenal gland s are unremarkable. No evidence for renal calculi or acute obstruction. Postop changes at L4, L5 a nd S1 of the lumbar spine. There are multiple small bowel loops which contain fluid which are not sig nificantly dilated. There is extensive fluid throughout almost the entire colon. These findings are n onspecific but raise concern for possible diarrhea and possible nonspecific enterocolitis. Minimal si gmoid colon diverticulosis without acute diverticulitis. A normal appendix is not seen. No CT evidenc e for acute appendicitis. No abscess, adenopathy or abnormal fluid collection throughout the abdomen and pelvis. IMPRESSION: Some fairly extensive fluid throughout nondilated small bowel as well as extensive fluid throughout t he colon, nonspecific, raising concern for the possibility of nonspecific enterocolitis. Probable sma ll hiatal hernia. Other stable findings as above. POS: [facility]
== END 2018-03-30 20:26 | disposition home or self-care (01) ==
LOC: ERS 16:07
DX: K52.9 Noninfective gastroenteritis and colitis, unspecified (principal); N39.0 Urinary tract infection, site not specified; E03.9 Hypothyroidism, unspecified; I10 Essential (primary) hypertension; Z87.891 Personal history of nicotine dependence; Z79.899 Other long term (current) drug therapy
CPT/HCPCS: 36415; 74177; 80053; 81003; 81015; 82550; 83690; 84484; 85025; 93005; 96361; 96365; 96366; 96367; 96375; J0696; J1200; J2765

== ENCOUNTER 2018-07-04 12:26 | Emergency (ER) | payer BC ==
[2018-07-04 12:57] LABS: #Basophils 0.1 thou/uL (0.0-0.2); #Eosinphils 0.1 thou/uL (0.0-0.7); #Monocytes 0.6 thou/uL (0.11-0.59); #Neutrophils 3.3 thou/uL (1.40-6.50); %Basophils 0.9 % (0.0-1.0); %Lymphocytes 32.8 % (21.0-51.0); %Monocytes 10.5 % (0.0-10.0); %Neutrophils 54.9 % (42.0-75.0); Hemoglobin 13.1 g/dL (12.0-16.0); Mean Corpuscular HGB CONC 33.9 g/dL (32.0-36.0); Mean Corpuscular Hemoglobin 29.9 pg (27.0-31.0); Mean Corpuscular Volume 88.1 fL (78.0-98.0); Mean Platelet Volume 5.9 fL (7.4-10.4); Platelet Count 215 thou/uL (130-400); RBC Distribution Width 12.4 % (11.5-14.5); Red Blood Cell (RBC) Count 4.38 mill/uL (4.20-5.40)
[2018-07-04 13:14] LABS: ALT (SGPT) 19 U/L (8-55); AST (SGOT) 21 U/L (5-34); Albumin 4.1 g/dL (3.5-5.0); Alkaline Phosphatase 118 U/L (40-150); Anion Gap 13 mmol/L (10-20); BUN (Urea Nitrogen) 12 mg/dL (9.8-20.1); Bilirubin, Total 0.5 mg/dL (0.2-1.2); Calc. Creatinine Clearance 0 mL/min (70-130); Calcium 9.5 mg/dL (7.8-10.44); Carbon Dioxide 27 mmol/L (22-29); Chloride 104 mmol/L (98-107); Estimated GFR-MDRD 72; Globulin 2.7 g/dL (2.4-3.5); Glucose 84 mg/dL (70-105); Lipase 29 U/L (8-78); Potassium 3.9 mmol/L (3.5-5.1); Protein, Total 6.8 g/dL (6.0-8.3); Sodium 140 mmol/L (136-145)
[2018-07-04] MEDS ORDERED: metroNIDAZOLE 500 MG TAB ONE (14:06)
[2018-07-04] MEDS ORDERED: Ondansetron PF 4 MG/2 ML Vial ONE (14:06)
[2018-07-04] MEDS ORDERED: Cipro 250 MG TAB ONE (14:06)
== END 2018-07-04 14:35 | disposition home or self-care (01) ==
LOC: SCSER 12:26
DX: K57.92 Diverticulitis of intestine, part unspecified, without perforation or abscess without bleeding (principal); E03.9 Hypothyroidism, unspecified; I10 Essential (primary) hypertension; K21.9 Gastro-esophageal reflux disease without esophagitis; M32.9 Systemic lupus erythematosus, unspecified; Z87.891 Personal history of nicotine dependence; Z79.899 Other long term (current) drug therapy
CPT/HCPCS: 80053; 83690; 85025; 96374; 96375; J1170; J2405

== ENCOUNTER 2018-12-15 08:52 | Outpatient (CLI) | payer BC ==
--- NOTE | 2018-12-15 09:26 | MMO ---
Bilateral MAMMO Bilat Screen [facility]. CLINICAL HISTORY: Patient is 58 years old and is seen for screening. The patient has the following family history of breast cancer: aunt, at age 50, malignant (generic). The patient has no personal history of cancer. The patient has a history of left Excisional Biopsy in January, - benign. VIEWS: The views performed were: bilateral craniocaudal with tomosynthesis and bilateral mediolateral oblique with tomosynthesis. FILMS COMPARED: The present examination has been compared to prior imaging studies performed at [facility] on 03/21/2015, 09/24/2015, 04/25/2016 and 09/07/2017. MAMMOGRAM FINDINGS: There are scattered fibroglandular densities. There are stable benign appearing calcifications seen in both breasts. There are no suspicious masses, suspicious calcifications, or new areas of architectural distortion. IMPRESSION: THERE IS NO MAMMOGRAPHIC EVIDENCE OF MALIGNANCY. A ROUTINE FOLLOW-UP MAMMOGRAM IN 1 YEAR IS RECOMMENDED. THE RESULTS OF THIS EXAM WERE SENT TO THE PATIENT. ACR BI-RADS Category 2 - Benign finding MAMMOGRAPHY NOTE: 1. A negative mammogram report should not delay a biopsy if a dominant of clinically suspicious mass is present. 2. Approximately 10% to 15% of breast cancers are not detected by mammography. 3. Adenosis and dense breasts may obscure an underlying neoplasm. Reported by: ELSI FIGUEROA MD Electonically Signed: [id number]
== END 2018-12-15 08:53 | disposition home or self-care (01) ==
LOC: BICMAMMO 08:52
PROVIDERS: ATTEND Obstetrics & Gynecology
DX: Z12.31 Encounter for screening mammogram for malignant neoplasm of breast (principal); Z80.3 Family history of malignant neoplasm of breast; Z91.89 Other specified personal risk factors, not elsewhere classified
CPT/HCPCS: 77063; 77067

== ENCOUNTER 2019-05-17 07:36 | Outpatient (CLI) | payer BC ==
--- NOTE | 2019-05-17 12:25 | NM ---
NUCLEAR MEDICINE GASTRIC IMAGING STUDY: RADIOPHARMACEUTICAL: 2 mCi technetium 99m sulfur colloid orally with eggs. FINDINGS: There is 52% emptying documented at 30 minutes. There is 70% emptying at the 1 hour time hollis. There is 78% emptying at the 2 hour time hollis. There is 84% emptying at the 3 hour time hollis. There is 92% emptying at the 4 hour time hollis. The T1/2 for this examination is 31 minutes. IMPRESSION: Normal gastric emptying evaluation Transcribed Date/Time: 05/17/2019 1:43 PM
== END 2019-05-17 07:37 | disposition home or self-care (01) ==
LOC: NM 07:36
PROVIDERS: ATTEND Internal Medicine Gastroenterology
DX: K31.84 Gastroparesis (principal)
CPT/HCPCS: 78264; A9541

== ENCOUNTER 2019-12-09 11:07 | Outpatient (CLI) | payer BC ==
--- NOTE | 2019-12-09 13:00 | CT ---
CT ABDOMEN AND PELVIS WITH IV CONTRAST 12/09/2019 CLINICAL INFORMATION: Severe lower abdominal pain for 3 weeks. Diverticulitis. COMPARISON: 03/30/2018 Technique: Multiple contiguous axial CT images are obtained through the abdomen and pelvis with IV contrast. Cor onal reformatted images are provided. FINDINGS: Lower Chest: Lung bases are clear. Vessels: Minimal vascular calcifications in the abdominal aorta. Abdominal aorta is normal in caliber . Abdomen: Portal vein:Patent Gallbladder: Surgically absent. Liver: within normal limits. Spleen: Calcified granuloma present. Pancreas: within normal limits. Adrenals: within normal limits. Kidneys: Subcentimeter too small to characterize hypodense lesions left kidney. Right kidney has a no rmal CT appearance. Bowel: Sigmoid colon is decompressed, but allowing for decompressed nature of the colon in this regio n, there does appear to be colonic wall thickening. No adjacent inflammatory stranding is appreciated. Colonic diverticuli are seen throughout this region. Loops of small bowel are normal in caliber. Appendix: The appendix is visualized and normal in caliber. Peritoneum: No ascites or free air; no fluid collection. Mesentery and Retroperitoneum: No enlarged mesenteric or retroperitoneal lymph nodes. Abdominal Wall: within normal limits. Pelvis: Reproductive Organs: Evidence of hysterectomy. Bladder: Incompletely distended but otherwise within normal limits for Bones: Postoperative changes lower lumbar spine are again seen. Endplate degenerative changes are aga in present at the at the L2-3 level. IMPRESSION: 1. Wall thickening involving the sigmoid colon. Findings are worrisome for colitis. There are several diverticuli in this region, but no adjacent inflammatory changes are identified. Findings could be related to diverticulitis, colitis related to infectious or inflammatory etiology is a possibility. 2. Additional findings as described above.
== END 2019-12-09 11:08 | disposition home or self-care (01) ==
LOC: SCSCT 11:07
PROVIDERS: ATTEND Physician Assistant Medical
DX: K57.92 Diverticulitis of intestine, part unspecified, without perforation or abscess without bleeding (principal); K63.89 Other specified diseases of intestine; N28.89 Other specified disorders of kidney and ureter; D73.89 Other diseases of spleen; I70.0 Atherosclerosis of aorta; M47.816 Spondylosis without myelopathy or radiculopathy, lumbar region; Z98.890 Other specified postprocedural states; Z90.710 Acquired absence of both cervix and uterus
CPT/HCPCS: 74177

== ENCOUNTER 2020-01-12 13:03 | Outpatient (CLI) | payer BC ==
--- NOTE | 2020-01-12 15:51 | MMO ---
Bilateral MAMMO Bilat Screen [facility]. CLINICAL HISTORY: Patient is 59 years old and is seen for screening. The patient has the following family history of breast cancer: aunt, at age 50, malignant (generic). The patient has no personal history of cancer. The patient has a history of left Excisional Biopsy in January, - benign. VIEWS: The views performed were: bilateral craniocaudal with tomosynthesis and bilateral mediolateral oblique with tomosynthesis. FILMS COMPARED: The present examination has been compared to prior imaging studies performed at [facility] on 09/24/2015, 04/25/2016, 09/07/2017 and 12/15/2018. This study has been interpreted with the assistance of computer-aided detection. MAMMOGRAM FINDINGS: There are scattered fibroglandular densities. Benign calcifications are noted bilaterally. There are no suspicious masses, suspicious calcifications, or new areas of architectural distortion. IMPRESSION: THERE IS NO MAMMOGRAPHIC EVIDENCE OF MALIGNANCY. A ROUTINE FOLLOW-UP MAMMOGRAM IN 1 YEAR IS RECOMMENDED. THE RESULTS OF THIS EXAM WERE SENT TO THE PATIENT. ACR BI-RADS Category 2 - Benign finding MAMMOGRAPHY NOTE: 1. A negative mammogram report should not delay a biopsy if a dominant of clinically suspicious mass is present. 2. Approximately 10% to 15% of breast cancers are not detected by mammography. 3. Adenosis and dense breasts may obscure an underlying neoplasm. Reported by: BING PATINO MD Electonically Signed: [id number]
== END 2020-01-12 13:04 | disposition home or self-care (01) ==
LOC: BICMAMMO 13:03
PROVIDERS: ATTEND Obstetrics & Gynecology
DX: Z12.31 Encounter for screening mammogram for malignant neoplasm of breast (principal); Z80.3 Family history of malignant neoplasm of breast
CPT/HCPCS: 77063; 77067

== ENCOUNTER 2021-01-15 08:16 | Outpatient (CLI) | payer BC | END 2021-01-15 08:17 | disposition home or self-care (01) | LOC: BICMAMMO 08:16 | PROVIDERS: ATTEND Obstetrics & Gynecology | DX: Z12.31 Encounter for screening mammogram for malignant neoplasm of breast (principal); Z80.3 Family history of malignant neoplasm of breast; Z91.89 Other specified personal risk factors, not elsewhere classified | CPT/HCPCS: 77063; 77067 ==

== ENCOUNTER 2021-04-17 08:51 | Outpatient (CLI) | payer BC | END 2021-04-17 08:52 | disposition home or self-care (01) | LOC: SCSMRI 08:51 | PROVIDERS: ATTEND Nurse Practitioner Adult Health | DX: R26.89 Other abnormalities of gait and mobility (principal); H47.10 Unspecified papilledema; R90.89 Other abnormal findings on diagnostic imaging of central nervous system | CPT/HCPCS: 70553; 82565 ==

== ENCOUNTER 2022-05-08 08:51 | Outpatient (CLI) | payer BC | END 2022-05-08 08:52 | disposition home or self-care (01) | LOC: BICMAMMO 08:51 | PROVIDERS: ATTEND Obstetrics & Gynecology | DX: Z12.31 Encounter for screening mammogram for malignant neoplasm of breast (principal); Z91.89 Other specified personal risk factors, not elsewhere classified; Z80.3 Family history of malignant neoplasm of breast | CPT/HCPCS: 77063; 77067 ==

== ENCOUNTER 2023-03-27 11:34 | Observation (INO) | payer BC ==
[2023-03-27 13:40] LABS: #Monocytes 0.6 thou/uL (0.11-0.59); %Basophils 0.4 % (0.0-1.0); %Eosinophils 0.6 % (0.0-10.0); %Lymphocytes 33.1 % (21.0-51.0); %Monocytes 10.5 % (0.0-10.0); %Neutrophils 54.8 % (42.0-75.0); Hematocrit 40.1 % (36.0-47.0); Hemoglobin 13.4 g/dL (12.0-16.0); Mean Corpuscular HGB CONC 33.4 g/dL (32.0-36.0); Mean Corpuscular Hemoglobin 30.6 pg (27.0-31.0); Mean Corpuscular Volume 91.6 fl (78.0-98.0); Mean Platelet Volume 9.4 fL (7.4-10.4); Platelet Count 292 10x3/uL (130-400); RBC Distribution Width 12.4 % (11.5-14.5); Red Blood Cell (RBC) Count 4.38 mill/uL (4.20-5.40); White Blood Cell (WBC) Count 5.4 10x3/uL (4.8-10.8)
[2023-03-27 14:01] LABS: ALT (SGPT) 12 U/L (8-55); AST (SGOT) 17 U/L (5-34); Albumin 4.2 g/dL (3.5-5.0); Alkaline Phosphatase 88 U/L (40-110); Anion Gap 14 mmol/L (10-20); BUN (Urea Nitrogen) 16 mg/dL (9.8-20.1); Bilirubin, Total 0.5 mg/dL (0.2-1.2); Calc. Creatinine Clearance 0 mL/min (70-130); Calcium 8.6 mg/dL (7.8-10.44); Carbon Dioxide 26 mmol/L (22-29); Chloride 105 mmol/L (98-107); Estimated GFR 83; Globulin 2.7 g/dL (2.4-3.5); Glucose 80 mg/dL (70-105); Potassium 3.7 mmol/L (3.5-5.1); Protein, Total 6.9 g/dL (6.0-8.3); Sodium 141 mmol/L (136-145)
[2023-03-27 14:06] LABS: Troponin I Less than 0.010 ng/mL (< 0.028)
[2023-03-27 14:32] LABS: SARS-CoV-2 NAA Rapid Test Not Detected (NotDetected)
[2023-03-27] MEDS ORDERED: Aspirin Chewable 81 MG TAB ONE (14:34)
[2023-03-27] MEDS ORDERED: Ondansetron ODT 4 MG TAB PO PRN (16:05)
[2023-03-27] MEDS ORDERED: hydrALAZINE 20 MG/ML VIAL SLOW IVP PRN (16:05)
[2023-03-27] MEDS ORDERED: Acetaminophen 325 MG TAB PO PRN (16:05)
[2023-03-27 17:25] VITALS: BMI 23.3
[2023-03-27] MEDS: Famotidine 20 MG TAB PO SCH (20:54)
[2023-03-27] MEDS ORDERED: Rosuvastatin 20 MG TAB PO SCH (21:00)
[2023-03-28 07:06] LABS: Cardiac Risk 2.9 (Less than 4.5)
[2023-03-28] MEDS ORDERED: Meclizine HCl 25 MG TAB PO SCH ×2 (07:30→14:00)
[2023-03-28] MEDS: Famotidine 20 MG TAB PO SCH (08:30)
[2023-03-28] MEDS ORDERED: CO Q-10 CAPSULE 100 MG PO SCH (09:00)
[2023-03-28] MEDS ORDERED: Hydroxychloroquine Sulfate 200 MG TAB PO SCH (09:00)
[2023-03-28] MEDS ORDERED: Non-Formulary Item 1 EACH (Lansoprazole [Lansoprazole] 30 MG Capsule.Dr) PO SCH (09:00)
[2023-03-28] MEDS ORDERED: Levothyroxine Sodium 25 MCG TAB PO SCH (09:00)
[2023-03-28] MEDS ORDERED: Amlodipine 5 MG TAB PO SCH (09:00)
[2023-03-28] MEDS ORDERED: Aspirin 81 mg Enteric Coated Tablet PO SCH (09:00)
[2023-03-28] MEDS ORDERED: Gabapentin 300 MG CAP PO SCH (09:00)
[2023-03-28 15:55] VITALS: BP 121/74; TEMP 98
[2023-03-29] MEDS ORDERED: Levothyroxine 150 MCG TAB PO SCH (06:00)
[2023-03-30] MEDS ORDERED: FLU VACC QS2023-24(6MOS UP)/PF 60 MCG/0.5 ML SYRINGE IM ONE (09:00)
== END 2023-03-28 18:17 | disposition home or self-care (01) ==
LOC: ERS 11:34 → 2SE 16:39
PROVIDERS: ADMIT Internal Medicine; ATTEND Internal Medicine
DX: G45.9 Transient cerebral ischemic attack, unspecified (principal); I10 Essential (primary) hypertension; K21.9 Gastro-esophageal reflux disease without esophagitis; E03.9 Hypothyroidism, unspecified; M79.7 Fibromyalgia; L93.0 Discoid lupus erythematosus; Z88.1 Allergy status to other antibiotic agents; Z88.2 Allergy status to sulfonamides; Z88.8 Allergy status to other drugs, medicaments and biological substances; Z90.710 Acquired absence of both cervix and uterus; Z90.49 Acquired absence of other specified parts of digestive tract; Z79.899 Other long term (current) drug therapy; Z79.890 Hormone replacement therapy
CPT/HCPCS: 36415; 70450; 70551; 80053; 80061; 84443; 84484; 85025; 93005; 93880; 95816; 95819; 96360; 96372; G0378; J1650

== ENCOUNTER 2023-05-11 15:29 | Outpatient (CLI) | payer BC | END 2023-05-11 15:30 | disposition home or self-care (01) | LOC: BICMAMMO 15:29 | PROVIDERS: ATTEND Obstetrics & Gynecology | DX: Z12.31 Encounter for screening mammogram for malignant neoplasm of breast (principal); Z80.3 Family history of malignant neoplasm of breast; Z91.89 Other specified personal risk factors, not elsewhere classified | CPT/HCPCS: 77063; 77067 ==

== ENCOUNTER 2024-05-04 09:35 | Emergency (ER) | payer BC, OTHER ==
[2024-05-04 11:07] LABS: Bacteria/HPF None Seen HPF (None Seen); Bilirubin Negative (Negative); Blood, Urine Negative (Negative); CAUTI Indications for Culture Alt mental st,lethar; Clarity Clear (Clear); Glucose, Urine (Dipstick) Normal (Negative); Ketone, Urine Negative (Negative); Leukocyte Negative Leu/uL (Negative); Nitrite Negative (Negative); Protein, Urine (Dipstick) Negative (Neg-Trace); RBC/HPF 0-3 HPF (0-3); Specific Gravity, Urine 1.009 (1.002-1.036); Squamous Epithelial 0-3 HPF (0-3); Urobilinogen Normal mg/dL (Less than 2); WBC/HPF 0-3 HPF (0-3); pH, Urine 6.5 (5.0-9.0)
[2024-05-04 11:17] LABS: Urine Culture Reflex No No
[2024-05-04 11:17] LABS: #Basophils 0.04 10x3/uL (0.0-0.2); %Eosinophils 2.6 % (0.0-10.0); %Lymphocytes 35.2 % (21.0-51.0); %Monocytes 12.3 % (0.0-10.0); %Neutrophils 48.9 % (42.0-75.0); Hematocrit 35.2 % (36.0-47.0); Hemoglobin 11.6 g/dL (12.0-16.0); Mean Corpuscular Hemoglobin 28.3 pg (27.0-31.0); Mean Corpuscular Volume 85.9 fL (78.0-98.0); Mean Platelet Volume 9.4 fL (7.4-10.4); Platelet Count 207 10x3/uL (130-400); RBC Distribution Width 13.2 % (11.5-14.5)
[2024-05-04 11:31] LABS: ALT (SGPT) 13 U/L (8-55); AST (SGOT) 21 U/L (5-34); Alkaline Phosphatase 108 U/L (40-110); Anion Gap 11 mmol/L (10-20); BUN (Urea Nitrogen) 11 mg/dL (9.8-20.1); Bilirubin, Total 0.4 mg/dL (0.2-1.2); Calc. Creatinine Clearance 0 mL/min (70-130); Calcium 9.3 mg/dL (7.8-10.44); Carbon Dioxide 26 mmol/L (23-31); Chloride 108 mmol/L (98-107); Estimated GFR 101; Globulin 3.3 g/dL (2.4-3.5); Glucose 99 mg/dL (80-115); Potassium 4.2 mmol/L (3.5-5.1); Protein, Total 7.3 g/dL (5.8-8.1); Sodium 141 mmol/L (136-145)
[2024-05-04 11:36] LABS: Troponin I Less than 0.010 ng/mL (< 0.028)
== END 2024-05-04 13:32 | disposition home or self-care (01) ==
LOC: ERS 09:35
DX: R53.1 Weakness (principal); M79.7 Fibromyalgia; E03.9 Hypothyroidism, unspecified; K21.9 Gastro-esophageal reflux disease without esophagitis; I10 Essential (primary) hypertension; Z86.73 Personal history of transient ischemic attack (TIA), and cerebral infarction without residual deficits; Z79.890 Hormone replacement therapy; Z79.899 Other long term (current) drug therapy
CPT/HCPCS: 80053; 81001; 84484; 85025; 99284